=== PATIENT | male | born 1940 | race Caucasian/White ===

== ENCOUNTER 2016-06-22 13:29 | Inpatient (IN) | payer OTHER ==
[~2016-06-22] VITALS: Ht 175.3 cm; Wt 85.3 kg
[~2016-06-22 13:29] MED LIST: ASPI-482 PO; BIMA2.5D OP; BRIN10DR OP; DONE10TA34 PO; FURO-69 PO; LATA2.5D2 OU; PHEN100C PO; POTA10TA5 PO; Phenobarbital PO; SIMV10TA3 PO
[2016-06-22] MEDS ORDERED: VANCOMYCIN PER PHARMACY MC ONE (13:45)
[2016-06-22] MEDS ORDERED: FENTANYL PF 100 MCG/2 ML VIAL. IV ONE (14:00)
--- NOTE | 2016-06-22 14:03 | RAD ---
Exam performed: 3 views right ankle. History: Right ankle pain, status post fall. Date of service: 06/22/16. Comparison: None available 3 views right ankle findings: Normal alignment of the ankle mortise is preserved. There is no acute fracture or dislocation. There is diffuse soft tissue swelling around the ankle. Extensive calcification of the Achilles tendon noted. Impression: Diffuse soft tissue swelling around the right ankle without underlying acute bony abnormality. Diffuse calcification of the Achillis tendon seen.
[2016-06-22 14:11] LABS: BASO % 0 % (0-3); EOS % 1 % (0-3); HEMATOCRIT 42.8 % (39.0-53.0); HEMOGLOBIN 14.6 g/dL (13.0-17.5); LYMPH # 0.7 x10^3/uL (1.0-4.8); LYMPH % 6 % (24-48); MEAN CORPUSCULAR HEMOGLOBIN 33 pg (25-35); MEAN CORPUSCULAR HGB CONC 34 g/dL (31-37); MEAN CORPUSCULAR VOLUME 95 fL (79-100); MONO % 11 % (0-9); NEUT % 82 % (31-73); PLATELET COUNT 249 x10^3/uL (140-400); RED BLOOD COUNT 4.49 x10^6/uL (4.30-5.70); RED CELL DISTRIBUTION WIDTH 13.7 % (11.5-14.5); WHITE BLOOD COUNT 10.4 x10^3/uL (4.0-11.0)
[2016-06-22] MEDS ORDERED: VANCOMYCIN 2 GM in IV NORMAL SALINE 500ML BAG 500 ML IV ONE (14:15)
[2016-06-22 14:23] LABS: CALCIUM 9.3 mg/dL (8.5-10.1); CREATININE 0.9 mg/dL (0.7-1.3); GFR 82.3; POTASSIUM 3.5 mmol/L (3.5-5.1)
[2016-06-22] MEDS ORDERED: ONDANSETRON PF 4 MG/2 ML VIAL. IV PRN ×2 (14:30→18:00)
[2016-06-22] MEDS ORDERED: ACETAMINOPHEN 325 MG TABLET. PO PRN ×2 (14:30→18:00)
[2016-06-22] MEDS ORDERED: FENTANYL PF 100 MCG/2 ML VIAL. IV PRN (14:30)
--- NOTE | 2016-06-22 14:33 | PHYS DOC ---
Past Medical History Past Medical History: Dementia, Glaucoma, High Cholesterol, Seizure, Other Additional Past Medical Histor: edema; narrow angle glaucoma; defect to right arm and leg Past Surgical History: Other Additional Past Surgical Histo: R arm; R leg; hernia; R hip; Alcohol Use: None Drug Use: None Adult General Chief Complaint Chief Complaint: LOWER EXTREMITY SWELLING HPI HPI This is a 75-year-old male whose presenting from [facility] after having a soft tissue injury to his right ankle to 3 days ago and now having significant redness and swelling to his right ankle and anterior tibial surface with inability to bear weight on that side secondary to pain. He denies any other to medical injury with his injury to his ankle. He denies hitting his head or having loss of conscious. He denies any nausea or vomiting. He denies any chest pain or shortness breath. He rates his pain a 10/10 all localized to the right ankle area. Review of Systems Review of Systems Constitutional: Denies fever or chills [] Eyes: Denies change in visual acuity, redness, or eye pain [] HENT: Denies nasal congestion or sore throat [] Respiratory: Denies cough or shortness of breath [] Cardiovascular: No additional information not addressed in HPI [] GI: Denies abdominal pain, nausea, vomiting, bloody stools or diarrhea [] : Denies dysuria or hematuria [] Musculoskeletal: Denies back pain or joint pain [] Integument: Denies rash or skin lesions [] Neurologic: Denies headache, focal weakness or sensory changes [] Endocrine: Denies polyuria or polydipsia [] Current Medications Current Medications Current Medications Medications (Trade) Dose Ordered Sig/Gustavo Start Time Stop Time Status Last Admin Dose Admin Vancomycin HCl (Vanco Per Pharmacy) 1 each 1X ONCE 06/22/16 13:45 06/22/16 14:50 RI Allergies Allergies Allergies Coded Allergies Type Severity Reaction Last Updated Verified No Known Drug Allergies 01/24/15 No Physical Exam Physical Exam Constitutional: Well developed, well nourished, no acute distress, non-toxic appearance. [] HENT: Normocephalic, atraumatic, bilateral external ears normal, oropharynx moist, no oral exudates, nose normal. [] Eyes: PERRLA, EOMI, conjunctiva normal, no discharge. [] Neck: Normal range of motion, no tenderness, supple, no stridor. [] Cardiovascular:Heart rate regular rhythm, no murmur [] Lungs & Thorax: Bilateral breath sounds clear to auscultation [] Abdomen: Bowel sounds normal, soft, no tenderness, no masses, no pulsatile masses. [] Skin: Warm, dry, no erythema, no rash. [] Back: No tenderness, no CVA tenderness. [] Extremities: Moderate swelling, warmth, and tenderness to right ankle with signifcant erythema and pitting edema, this is c/w with cellulitis, no cyanosis , no clubbing, ROM limited in the right ankle secondary to pain, moderate edema. [] Neurologic: Alert and oriented X 3, normal motor function, normal sensory function, no focal deficits noted. [] Psychologic: Affect normal, judgement normal, mood normal. [] Current Patient Data Vital Signs Vital Signs Date Time Temp Pulse Resp B/P Pulse Ox O2 Delivery O2 Flow Rate FiO2 06/22/16 13:30 98.7 91 18 155/87 95 Room Air 98.7 Lab Values Laboratory Tests Test 06/22/16 13:45 White Blood Count 10.4x10^3/uL (4.0-11.0) Red Blood Count 4.49x10^6/uL (4.30-5.70) Hemoglobin 14.6g/dL (13.0-17.5) Hematocrit 42.8% (39.0-53.0) Mean Corpuscular Volume 95fL (79-100) Mean Corpuscular Hemoglobin 33pg (25-35) Mean Corpuscular Hemoglobin Concent 34g/dL (31-37) Red Cell Distribution Width 13.7% (11.5-14.5) Platelet Count 249x10^3/uL (140-400) Neutrophils (%) (Auto) 82% (31-73) H Lymphocytes (%) (Auto) 6% (24-48) L Monocytes (%) (Auto) 11% (0-9) H Eosinophils (%) (Auto) 1% (0-3) Basophils (%) (Auto) 0% (0-3) Neutrophils # (Auto) 8.5x10^3uL (1.8-7.7) H Lymphocytes # (Auto) 0.7x10^3/uL (1.0-4.8) L Monocytes # (Auto) 1.2x10^3/uL (0.0-1.1) H Eosinophils # (Auto) 0.1x10^3/uL (0.0-0.7) Basophils # (Auto) 0.0x10^3/uL (0.0-0.2) Sodium Level 140mmol/L (136-145) Potassium Level 3.5mmol/L (3.5-5.1) Chloride Level 103mmol/L (98-107) Carbon Dioxide Level 28mmol/L (21-32) Anion Gap 9 (6-14) Blood Urea Nitrogen 17mg/dL (8-26) Creatinine 0.9mg/dL (0.7-1.3) Estimated GFR (Cockcroft-Gault) 82.3 Glucose Level 93mg/dL (70-99) Calcium Level 9.3mg/dL (8.5-10.1) Laboratory Tests 06/22/16 13:45 Laboratory Tests 06/22/16 13:45 EKG EKG [] Radiology/Procedures Radiology/Procedures Exam performed: 3 views right ankle. History: Right ankle pain, status post fall. Date of service: 06/22/16. Comparison: None available 3 views right ankle findings: Normal alignment of the ankle mortise is preserved. There is no acute fracture or dislocation. There is diffuse soft tissue swelling around the ankle. Extensive calcification of the Achilles tendon noted. Course & Med Decision Making Course & Med Decision Making Pertinent Labs and Imaging studies reviewed. (See chart for details) 75-year-old male who's having extensive area of soft tissue swelling to his right ankle that is consistent with ongoing cellulitic process will be admitted to the hospital with IV antibiotics. Blood cultures obtained prior to antibiotics. I ordered IV vancomycin for treatment. His laboratory workup is unrevealing. 3 views of his right ankle did demonstrate diffuse soft tissue swelling but no underlying acute bony abnormality. I discussed the need for admission with the hospitalist, Dr. Hylton, who agreed to admit for IV antibiotic therapy. Upon final reassessment prior to admission the patient was developing a area of redness around the IV infiltration site. IV vancomycin was then discontinued and clindamycin therapy was ordered instead. Dr. Hylton will be updated about this. Dragon Disclaimer Dragon Disclaimer This electronic medical record was generated, in whole or in part, using a voice recognition dictation system. Departure Departure Impression: Primary Impression: Cellulitis of right leg Disposition: ADMITTED INPATIENT Admitting Physician: Antoni Hylton Condition: STABLE Referrals: MORRO BIRMINGHAM MD (PCP) FREDY MCINTOSH DO Jun 22, 2016 14:32
--- NOTE | 2016-06-22 15:53 | ACF ---
Admission Forms Criteria CELLULITIS Clinical Indications for Admission to Inpatient Care (Place 'X' for any and all applicable criteria): Admission is indicated for ANY ONE of the following(1)(2)(3)(4)(5): [ ]I. Limb-threatening infection [ ]II. High-risk comorbid condition as indicated by ANY ONE of the following: [ ]a) Uncontrolled diabetes (eg, HbA1c greater than 10% (0.1)) [ ]b) Cirrhosis [ ]c) Neutropenia [ ]d) Asplenia [ ]e) Immunosuppression [ ]f) Symptomatic heart failure [ ]III. Failure of outpatient therapy as indicated by ALL of the following: [ ]a) Progression or no improvement after adequate trial (minimum of 48 hours, with longer period for stable lower extremity infection) [ ]b) Adequate antibiotic regimen as indicated by use of ANY ONE of the following: [ ]i) First-generation cephalosporin (e.g., cephalexin) [ ]ii) Antistaphylococcal penicillin (e.g., dicloxacillin) [ ]iii) Penicillin-allergic patient regimen (clindamycin, extended-spectrum fluoroquinolone, or doxycycline) [ ]iv) Resistant organism (eg, methicillin-resistant Staphylococcus aureus) regimen (6) [ ]c) Outpatient intravenous therapy regimen is not appropriate due to ANY ONE of the following. (7)(8)(9)(10): [ ]i) It was tried and was not successful (eg, progression of infection). [ ]ii) It is not available or cannot be arranged in a clinically appropriate time frame (e.g., the next day). [ ]iii) Clinical presentation (eg, acuity of infection, rapidity of progression, confirmed or suspected bacteremia) is judged to require ALL of the following: [ ]1) Immediate initiation of intravenous therapy ( eg, cannot wait for next day) [ ]2) Intensity of patient monitoring and observation (eg, vital sign measurement, checks for infection progression) that cannot be provided at other than inpatient level of care [ ]IV. Mental status changes [ ]V. Bacteremia [ ]. Hemodynamic instability [ ]VII. Suspected necrotizing soft tissue infection (e.g., gas in tissue)(11)( 12) [ ]VIII. Orbital infection (13)(14) [ ]IX. Associated surgical procedure (e.g., abscess drainage, debridement) not amenable to outpatient, emergency department, or observation care [ ]X. Cutaneous gangrene [ ]XI. High fever (temperature greater than 39.5 degrees C (103.1 degrees F) (oral)) not responsive to outpatient, emergency department, or observation care therapy [X]XIII. Inpatient admission required rather than observation care (Also use Cellulitis: Observation Care as appropriate) because of ANY ONE of the following : [ ]a) Periorbital or perineal infection that is severe or worsening [X]b) Severe pain requiring acute inpatient management [ ]c) IV fluid to replace significant ongoing (e.g., for over 24 hours) losses (greater than 3L/m2 per day) [ ]d) Compartment syndrome monitoring (17) [ ]e) Strict or protective (eg, laminar flow) isolation [ ]f) Urgent debridement or skin grafting [ ]g) Bone or joint debridement [ ]h) Immediate inpatient surgery [ ]i) Other condition, treatment or monitoring requiring inpatient admission Extended stay beyond goal length of stay may be needed for (1)(18): [ ]a) Necrotizing soft tissue infection or fasciitis [ ]b) Gram-negative infection [ ]c) Methicillin-resistant Staphylococcal aureus (MRSA) infection [ ]d) Peripheral venous insufficiency with cellulitis [ ]e) Extensive edema [ ]f) Sepsis or continued Hemodynamic instability [ ]g) Continued high fever or mental status change [ ]h) Bacteremia [ ]i) Active serious comorbid conditions ( eg, heart failure, renal insufficiency) The original [facility] [facility] content created by [employer] has been revised. The portions of the content which have been revised are identified through the use of italic text or in bold, and [employer] has neither reviewed nor approved the modified material. All other unmodified content is copyright [employer] [employer] Please see references footnoted in the original [facility] edition 2016 Admission Criteria Met?: Yes SHABNAM HOOPER Jun 22, 2016 15:53
[2016-06-22 16:00] VITALS: BP 124/81
[2016-06-22] MEDS ORDERED: CLINDAMYCIN 600MG PREMIX 50 ML IV SCH (16:00)
[2016-06-22] MEDS ORDERED: HYDROCODONE/APAP 5/325MG TABLET. PO PRN (18:00)
--- NOTE | 2016-06-22 18:00 | PDOC1 ---
History and Physical Date of Admission Date of Admission 06/22/16 Identification/Chief Complaint Chief Complaint right ankle pain Problems: Source Source: Chart review, Patient History of Present Illness History of Present Illness HPI HPI This is a 75-year-old male whose presenting from [facility] after having a soft tissue injury to his right ankle to 3 days ago. pt said he fell when walking on the ramp, then has severe right ankle pain, still could walk, with a walker. He denies hitting his head or having loss of conscious. Then the right ankle began swelling, with redness, and pain. no fever, chills, cough, chest pain. XR neg for fx. Past Medical History Cardiovascular: HTN, Hyperlipidemia CENTRAL NERVOUS SYSTEM: Other Past Surgical History Past Surgical History: Total hip replacement Family History Family History: No Significant Social History Smoke: No ALCOHOL: none Current Problem List Problem List Problems Medical Problems: (1) Cellulitis of right leg Status: Acute Current Medications Current Medications Current Medications Medications (Trade) Dose Ordered Sig/Gustavo Start Time Stop Time Status Last Admin Dose Admin Acetaminophen 650 mg 650 mg PRN Q4HRS PRN 06/22/16 14:30 06/23/16 14:29 Clindamycin Phosphate (Cleocin 600 Mg Premix) 50 ml @ 100 mls/hr Q8HRS 06/22/16 16:00 Fentanyl Citrate (Fentanyl 2ml Vial) 50 mcg PRN Q2HR PRN 06/22/16 14:30 06/23/16 14:29 Fentanyl Citrate 50 mcg 50 mcg 1X ONCE 06/22/16 14:00 06/22/16 14:01 DC 06/22/16 14:06 50 MCG Ondansetron HCl (Zofran) 4 mg PRN Q8HRS PRN 06/22/16 14:30 06/23/16 14:29 Vancomycin HCl (Vanco Per Pharmacy) 1 each 1X ONCE 06/22/16 13:45 06/22/16 14:50 DC Vancomycin HCl/ Sodium Chloride (Iv Sodium Chloride 0.9% 500ml Bag) 500 ml @ 250 mls/hr 1X ONCE 06/22/16 14:15 06/22/16 15:23 DC 06/22/16 14:25 250 MLS/HR Allergies Allergies Allergies Coded Allergies Type Severity Reaction Last Updated Verified No Known Drug Allergies 01/24/15 No ROS Review of System CONSTITUTIONAL: No fever or chills EYES: No recent changes SKIN: No rash or itching CARDIOVASCULAR: No chest pain, syncope, palpitations, or edema RESPIRATORY: No SOB or cough GASTROINTESTINAL: No nausea, vomiting or abdominal pain NEUROLOGICAL: No headaches or weakness ENDOCRINE: No cold or heat intolerance GENITOURINARY: No urgency or frequency of urination MUSCULOSKELETAL: No back pain or joint pain LYMPHATICS: No enlarged lymph nodes PSYCHIATRIC: No anxiety or depression Physical Exam Physical Exam GEN.: No apparent distress. Alert and oriented. HEENT: Head is normocephalic, atraumatic. bad hearing NECK: Supple. LUNGS: Clear to auscultation. HEART: RRR, S1, S2 present. Peripheral pulses intact ABDOMEN: Soft, nontender. Positive bowel sounds. EXTREMITIES: Without any cyanosis. right ankle, and upper to mid leg swelling, erythematous, tenderness. NEUROLOGIC: Normal speech, normal tone PSYCHIATRIC: Normal affect, normal mood. SKIN: No ulcerations Vitals Vitals Vital Signs Date Time Temp Pulse Resp B/P Pulse Ox O2 Delivery O2 Flow Rate FiO2 06/22/16 16:00 98.3 80 18 124/81 90 Room Air 98.3 Labs Labs Laboratory Tests Test 06/22/16 13:45 White Blood Count 10.4x10^3/uL (4.0-11.0) Red Blood Count 4.49x10^6/uL (4.30-5.70) Hemoglobin 14.6g/dL (13.0-17.5) Hematocrit 42.8% (39.0-53.0) Mean Corpuscular Volume 95fL (79-100) Mean Corpuscular Hemoglobin 33pg (25-35) Mean Corpuscular Hemoglobin Concent 34g/dL (31-37) Red Cell Distribution Width 13.7% (11.5-14.5) Platelet Count 249x10^3/uL (140-400) Neutrophils (%) (Auto) 82% (31-73) Lymphocytes (%) (Auto) 6% (24-48) Monocytes (%) (Auto) 11% (0-9) Eosinophils (%) (Auto) 1% (0-3) Basophils (%) (Auto) 0% (0-3) Neutrophils # (Auto) 8.5x10^3uL (1.8-7.7) Lymphocytes # (Auto) 0.7x10^3/uL (1.0-4.8) Monocytes # (Auto) 1.2x10^3/uL (0.0-1.1) Eosinophils # (Auto) 0.1x10^3/uL (0.0-0.7) Basophils # (Auto) 0.0x10^3/uL (0.0-0.2) Sodium Level 140mmol/L (136-145) Potassium Level 3.5mmol/L (3.5-5.1) Chloride Level 103mmol/L (98-107) Carbon Dioxide Level 28mmol/L (21-32) Anion Gap 9 (6-14) Blood Urea Nitrogen 17mg/dL (8-26) Creatinine 0.9mg/dL (0.7-1.3) Estimated GFR (Cockcroft-Gault) 82.3 Glucose Level 93mg/dL (70-99) Calcium Level 9.3mg/dL (8.5-10.1) Laboratory Tests Test 06/22/16 13:45 White Blood Count 10.4x10^3/uL (4.0-11.0) Red Blood Count 4.49x10^6/uL (4.30-5.70) Hemoglobin 14.6g/dL (13.0-17.5) Hematocrit 42.8% (39.0-53.0) Mean Corpuscular Volume 95fL (79-100) Mean Corpuscular Hemoglobin 33pg (25-35) Mean Corpuscular Hemoglobin Concent 34g/dL (31-37) Red Cell Distribution Width 13.7% (11.5-14.5) Platelet Count 249x10^3/uL (140-400) Neutrophils (%) (Auto) 82% (31-73) Lymphocytes (%) (Auto) 6% (24-48) Monocytes (%) (Auto) 11% (0-9) Eosinophils (%) (Auto) 1% (0-3) Basophils (%) (Auto) 0% (0-3) Neutrophils # (Auto) 8.5x10^3uL (1.8-7.7) Lymphocytes # (Auto) 0.7x10^3/uL (1.0-4.8) Monocytes # (Auto) 1.2x10^3/uL (0.0-1.1) Eosinophils # (Auto) 0.1x10^3/uL (0.0-0.7) Basophils # (Auto) 0.0x10^3/uL (0.0-0.2) Sodium Level 140mmol/L (136-145) Potassium Level 3.5mmol/L (3.5-5.1) Chloride Level 103mmol/L (98-107) Carbon Dioxide Level 28mmol/L (21-32) Anion Gap 9 (6-14) Blood Urea Nitrogen 17mg/dL (8-26) Creatinine 0.9mg/dL (0.7-1.3) Estimated GFR (Cockcroft-Gault) 82.3 Glucose Level 93mg/dL (70-99) Calcium Level 9.3mg/dL (8.5-10.1) VTE Prophylaxis Ordered VTE Prophylaxis Devices: Yes VTE Pharmacological Prophylaxi: Yes Assessment/Plan Assessment/Plan 1. right leg/ankle cellulitis 2. right ankle sprain post fall 3/ h/oseizure 4. glaucoma 5. hld 6. mild dementia , from assisted living facility plan: 1. id consult .2 got vanco in ER, then change to clind 2/2 reaction add cefazolin 3. add diflucan 4. pain control dvt ppx ptot cont home meds pt wants to go home tmr DWIGHT WOOD MD Jun 22, 2016 17:59
[2016-06-22] MEDS ORDERED: VIT1TABL8 PO (18:45)
[2016-06-22] MEDS ORDERED: CHOL2000 PO (18:46)
[2016-06-22] MEDS: FLUCONAZOLE 100 MG TABLET. PO SCH (18:53)
[2016-06-22 19:00] VITALS: BP 123/68
[2016-06-22] MEDS ORDERED: MAGNESIUM OXIDE 400 MG TABLET PO SCH (20:00)
[2016-06-22] MEDS: CEFAZOLIN SODIUM 1 GM in IV NORMAL SALINE 50ML 50 ML IV SCH (21:41)
[2016-06-22] MEDS: SIMVASTATIN 10 MG TABLET PO SCH (21:42)
[2016-06-22] MEDS: ENOXAPARIN 40 MG/0.4 ML DISP.SYRIN. SQ SCH (21:42)
[2016-06-22] MEDS: DORZOLAMIDE 2% OPHTH SOLUTION 10ML BOTTLE. OU SCH (21:50)
[2016-06-22] MEDS: LATANOPROST 0.005% OPHTH SOLUTION 2.5ML BOTTLE. OU SCH (21:50)
[2016-06-22 23:00] VITALS: BP 126/75
[2016-06-23 03:00] VITALS: BP 111/70
[2016-06-23] MEDS: CEFAZOLIN SODIUM 1 GM in IV NORMAL SALINE 50ML 50 ML IV SCH ×3 (05:59→21:47)
[2016-06-23 06:48] LABS: BASO % 0 % (0-3); EOS % 1 % (0-3); HEMATOCRIT 37.5 % (39.0-53.0); HEMOGLOBIN 12.8 g/dL (13.0-17.5); LYMPH # 0.7 x10^3/uL (1.0-4.8); LYMPH % 9 % (24-48); MEAN CORPUSCULAR HEMOGLOBIN 32 pg (25-35); MEAN CORPUSCULAR HGB CONC 34 g/dL (31-37); MEAN CORPUSCULAR VOLUME 95 fL (79-100); MONO % 13 % (0-9); NEUT % 77 % (31-73); PLATELET COUNT 215 x10^3/uL (140-400); RED BLOOD COUNT 3.96 x10^6/uL (4.30-5.70); WHITE BLOOD COUNT 8.1 x10^3/uL (4.0-11.0)
[2016-06-23 07:00] VITALS: BP 135/71
[2016-06-23 07:04] LABS: CALCIUM 8.3 mg/dL (8.5-10.1); CREATININE 0.7 mg/dL (0.7-1.3); GFR 109.9; POTASSIUM 3.3 mmol/L (3.5-5.1)
[2016-06-23] MEDS: PHENobarbital 32.4 MG TABLET. PO SCH (08:28)
[2016-06-23] MEDS: FLUCONAZOLE 100 MG TABLET. PO SCH (08:28)
[2016-06-23] MEDS: ASPIRIN ENTERIC COATED 81 MG TABLET.DR. PO SCH (08:28)
[2016-06-23] MEDS: DONEPEZIL HCL 10 MG TABLET. PO SCH (08:28)
[2016-06-23] MEDS: PHENYTOIN SODIUM EXTENDED 100 MG CAPSULE PO SCH (08:28)
[2016-06-23] MEDS: POTASSIUM CHLORIDE 10 MEQ TABLET.ER. PO SCH (08:28)
[2016-06-23] MEDS: FUROSEMIDE 20 MG TABLET PO SCH (08:30)
[2016-06-23] MEDS ORDERED: PHENYTOIN SODIUM EXTENDED 100 MG CAPSULE PO SCH (09:00)
[2016-06-23 11:00] VITALS: BP 129/76
--- NOTE | 2016-06-23 14:30 | PDOC ---
Infectious Disease Note ROS ROS GEN: Denies fevers, chills, sweats HEENT: Denies blurred vision, sore throat CV: Denies chest pain RESP: Denies shortness of air, cough GI: Denies n/v/d NEURO: Denies confusion, dizziness MSK: Denies weakness, joint pain/swelling Vital Sign Vital Signs Vital Signs Date Time Temp Pulse Resp B/P Pulse Ox O2 Delivery O2 Flow Rate FiO2 06/23/16 11:00 97.9 80 16 129/76 95 Room Air 97.9 06/22/16 19:00 1.0 Physical Exam PHYSICAL EXAM GENERAL: NAD, Alert HEENT: PERRL, OC/OP NECK: Supple, no JVD, no LN LUNGS: Clear HEART: S1S2, no gallop, no murmur ABD: Soft, NT, no organomegaly, no rebound EXT: No edema, no cyanosis ANTITANK ASS[employer] GUNNER: Alert, oriented x 3, no focal neurologic deficit SKIN: No rash IV: ok Labs Lab Laboratory Tests Test 06/23/16 05:31 White Blood Count 8.1x10^3/uL (4.0-11.0) Red Blood Count 3.96x10^6/uL (4.30-5.70) Hemoglobin 12.8g/dL (13.0-17.5) Hematocrit 37.5% (39.0-53.0) Mean Corpuscular Volume 95fL (79-100) Mean Corpuscular Hemoglobin 32pg (25-35) Mean Corpuscular Hemoglobin Concent 34g/dL (31-37) Red Cell Distribution Width 14.0% (11.5-14.5) Platelet Count 215x10^3/uL (140-400) Neutrophils (%) (Auto) 77% (31-73) Lymphocytes (%) (Auto) 9% (24-48) Monocytes (%) (Auto) 13% (0-9) Eosinophils (%) (Auto) 1% (0-3) Basophils (%) (Auto) 0% (0-3) Neutrophils # (Auto) 6.2x10^3uL (1.8-7.7) Lymphocytes # (Auto) 0.7x10^3/uL (1.0-4.8) Monocytes # (Auto) 1.0x10^3/uL (0.0-1.1) Eosinophils # (Auto) 0.1x10^3/uL (0.0-0.7) Basophils # (Auto) 0.0x10^3/uL (0.0-0.2) Sodium Level 140mmol/L (136-145) Potassium Level 3.3mmol/L (3.5-5.1) Chloride Level 105mmol/L (98-107) Carbon Dioxide Level 24mmol/L (21-32) Anion Gap 11 (6-14) Blood Urea Nitrogen 16mg/dL (8-26) Creatinine 0.7mg/dL (0.7-1.3) Estimated GFR (Cockcroft-Gault) 109.9 Glucose Level 87mg/dL (70-99) Calcium Level 8.3mg/dL (8.5-10.1) Objective Assessment RLE cellulitis S/p mechanical fall ? Vanc allergy - arm turning red Cerebral palsy Plan Plan of Care States he is improving since his admit Cont Cefazolin/Fluconazole U/S leg as he needs compression F/u labs Thank you # [id number] FELICIA HASSAN MD Jun 23, 2016 14:30
--- NOTE | 2016-06-23 14:51 | PDOC ---
PROGRESS NOTES Chief Complaint Chief Complaint 1. right leg/ankle cellulitis 2. right ankle sprain post fall 3/ h/oseizure 4. glaucoma 5. hld 6. mild dementia , from assisted living facility History of Present Illness History of Present Illness ID following pt reports redness is better no event leg braces to walk at baseline pt hoping to go home soon ultrasound b LE to eval for Edema, will check chem 12 for alb, consider echocardiogram if not improved Vitals Vitals Vital Signs Date Time Temp Pulse Resp B/P Pulse Ox O2 Delivery O2 Flow Rate FiO2 06/23/16 11:00 97.9 80 16 129/76 95 Room Air 97.9 06/22/16 19:00 1.0 Physical Exam General: Alert, Cooperative, No acute distress, Other (moderaet oriented) Heart: Regular rate, No murmurs Lungs: Clear Abdomen: Normal bowel sounds, Soft Extremities: No clubbing Skin: No rashes, No breakdown Labs LABS Laboratory Tests Test 06/23/16 05:31 White Blood Count 8.1x10^3/uL (4.0-11.0) Red Blood Count 3.96x10^6/uL (4.30-5.70) Hemoglobin 12.8g/dL (13.0-17.5) Hematocrit 37.5% (39.0-53.0) Mean Corpuscular Volume 95fL (79-100) Mean Corpuscular Hemoglobin 32pg (25-35) Mean Corpuscular Hemoglobin Concent 34g/dL (31-37) Red Cell Distribution Width 14.0% (11.5-14.5) Platelet Count 215x10^3/uL (140-400) Neutrophils (%) (Auto) 77% (31-73) Lymphocytes (%) (Auto) 9% (24-48) Monocytes (%) (Auto) 13% (0-9) Eosinophils (%) (Auto) 1% (0-3) Basophils (%) (Auto) 0% (0-3) Neutrophils # (Auto) 6.2x10^3uL (1.8-7.7) Lymphocytes # (Auto) 0.7x10^3/uL (1.0-4.8) Monocytes # (Auto) 1.0x10^3/uL (0.0-1.1) Eosinophils # (Auto) 0.1x10^3/uL (0.0-0.7) Basophils # (Auto) 0.0x10^3/uL (0.0-0.2) Sodium Level 140mmol/L (136-145) Potassium Level 3.3mmol/L (3.5-5.1) Chloride Level 105mmol/L (98-107) Carbon Dioxide Level 24mmol/L (21-32) Anion Gap 11 (6-14) Blood Urea Nitrogen 16mg/dL (8-26) Creatinine 0.7mg/dL (0.7-1.3) Estimated GFR (Cockcroft-Gault) 109.9 Glucose Level 87mg/dL (70-99) Calcium Level 8.3mg/dL (8.5-10.1) Review of Systems Review of Systems no n/v/d Assessment and Plan Assessmemt and Plan Problems Medical Problems: (1) Cellulitis of right leg Status: Acute Problems: Comment Review of Relevant I have reviewed the following items jody (where applicable) has been applied. Labs Laboratory Tests Test 06/22/16 13:45 06/23/16 05:31 White Blood Count 10.4x10^3/uL (4.0-11.0) 8.1x10^3/uL (4.0-11.0) Red Blood Count 4.49x10^6/uL (4.30-5.70) 3.96x10^6/uL (4.30-5.70) Hemoglobin 14.6g/dL (13.0-17.5) 12.8g/dL (13.0-17.5) Hematocrit 42.8% (39.0-53.0) 37.5% (39.0-53.0) Mean Corpuscular Volume 95fL (79-100) 95fL (79-100) Mean Corpuscular Hemoglobin 33pg (25-35) 32pg (25-35) Mean Corpuscular Hemoglobin Concent 34g/dL (31-37) 34g/dL (31-37) Red Cell Distribution Width 13.7% (11.5-14.5) 14.0% (11.5-14.5) Platelet Count 249x10^3/uL (140-400) 215x10^3/uL (140-400) Neutrophils (%) (Auto) 82% (31-73) 77% (31-73) Lymphocytes (%) (Auto) 6% (24-48) 9% (24-48) Monocytes (%) (Auto) 11% (0-9) 13% (0-9) Eosinophils (%) (Auto) 1% (0-3) 1% (0-3) Basophils (%) (Auto) 0% (0-3) 0% (0-3) Neutrophils # (Auto) 8.5x10^3uL (1.8-7.7) 6.2x10^3uL (1.8-7.7) Lymphocytes # (Auto) 0.7x10^3/uL (1.0-4.8) 0.7x10^3/uL (1.0-4.8) Monocytes # (Auto) 1.2x10^3/uL (0.0-1.1) 1.0x10^3/uL (0.0-1.1) Eosinophils # (Auto) 0.1x10^3/uL (0.0-0.7) 0.1x10^3/uL (0.0-0.7) Basophils # (Auto) 0.0x10^3/uL (0.0-0.2) 0.0x10^3/uL (0.0-0.2) Sodium Level 140mmol/L (136-145) 140mmol/L (136-145) Potassium Level 3.5mmol/L (3.5-5.1) 3.3mmol/L (3.5-5.1) Chloride Level 103mmol/L (98-107) 105mmol/L (98-107) Carbon Dioxide Level 28mmol/L (21-32) 24mmol/L (21-32) Anion Gap 9 (6-14) 11 (6-14) Blood Urea Nitrogen 17mg/dL (8-26) 16mg/dL (8-26) Creatinine 0.9mg/dL (0.7-1.3) 0.7mg/dL (0.7-1.3) Estimated GFR (Cockcroft-Gault) 82.3 109.9 Glucose Level 93mg/dL (70-99) 87mg/dL (70-99) Calcium Level 9.3mg/dL (8.5-10.1) 8.3mg/dL (8.5-10.1) Laboratory Tests Test 06/23/16 05:31 White Blood Count 8.1x10^3/uL (4.0-11.0) Red Blood Count 3.96x10^6/uL (4.30-5.70) Hemoglobin 12.8g/dL (13.0-17.5) Hematocrit 37.5% (39.0-53.0) Mean Corpuscular Volume 95fL (79-100) Mean Corpuscular Hemoglobin 32pg (25-35) Mean Corpuscular Hemoglobin Concent 34g/dL (31-37) Red Cell Distribution Width 14.0% (11.5-14.5) Platelet Count 215x10^3/uL (140-400) Neutrophils (%) (Auto) 77% (31-73) Lymphocytes (%) (Auto) 9% (24-48) Monocytes (%) (Auto) 13% (0-9) Eosinophils (%) (Auto) 1% (0-3) Basophils (%) (Auto) 0% (0-3) Neutrophils # (Auto) 6.2x10^3uL (1.8-7.7) Lymphocytes # (Auto) 0.7x10^3/uL (1.0-4.8) Monocytes # (Auto) 1.0x10^3/uL (0.0-1.1) Eosinophils # (Auto) 0.1x10^3/uL (0.0-0.7) Basophils # (Auto) 0.0x10^3/uL (0.0-0.2) Sodium Level 140mmol/L (136-145) Potassium Level 3.3mmol/L (3.5-5.1) Chloride Level 105mmol/L (98-107) Carbon Dioxide Level 24mmol/L (21-32) Anion Gap 11 (6-14) Blood Urea Nitrogen 16mg/dL (8-26) Creatinine 0.7mg/dL (0.7-1.3) Estimated GFR (Cockcroft-Gault) 109.9 Glucose Level 87mg/dL (70-99) Calcium Level 8.3mg/dL (8.5-10.1) Medications Current Medications Vancomycin HCl (Vanco Per Pharmacy) 1 each 1X ONCE [facility] ; Start 06/22/16 at 13:45 ; Stop 06/22/16 at 14:50; Status DC Fentanyl Citrate 50 mcg 50 mcg 1X ONCE IV Last administered on 06/22/16 14:06 ; Start 06/22/16 at 14:00; Stop 06/22/16 at 14:01; Status DC Vancomycin HCl/ Sodium Chloride (Iv Sodium Chloride 0.9% 500ml Bag) 500 ml @ 250 mls/hr 1X ONCE IV Last administered on 06/22/16 14:25; Start 06/22/16 at 14:15; Stop 06/22/16 at 15:23; Status DC Ondansetron HCl (Zofran) 4 mg PRN Q8HRS PRN IV NAUSEA/VOMITING; Start 06/22/16 at 14:30; Stop 06/22/16 at 17:59; Status DC Fentanyl Citrate (Fentanyl 2ml Vial) 50 mcg PRN Q2HR PRN IV PAIN; Start at 14:30; Stop 06/23/16 at 14:29; Status DC Acetaminophen 650 mg 650 mg PRN Q4HRS PRN PO FEVER; Start 06/22/16 at 14:30; Stop 06/22/16 at 17:59; Status DC Clindamycin Phosphate (Cleocin 600 Mg Premix) 50 ml @ 100 mls/hr Q8HRS IV Last administered on 06/22/16 17:56; Start 06/22/16 at 16:00; Stop 06/22/16 at 18:27; Status DC Aspirin (Ecotrin) 81 mg DAILY PO Last administered on 06/23/16 08:28; Start at 09:00 Donepezil HCl (Aricept) 10 mg DAILY PO Last administered on 06/23/16 08:28; Start 06/23/16 at 09:00 Furosemide (Lasix) 20 mg DAILY PO Last administered on 06/23/16 08:30; Start 06/23/16 at 09:00 Latanoprost (Xalatan) 1 drop HS OU ; Start 06/22/16 at 21:00 Phenytoin Sodium (Dilantin) 100 mg DAILY PO Last administered on 06/23/16 08: 28; Start 06/23/16 at 09:00 Phenytoin Sodium (Dilantin) 200 mg DAILY PO ; Start 06/23/16 at 09:00; Status UNV Simvastatin (Zocor) 10 mg HS PO Last administered on 06/22/16 21:42; Start 02/28 at 21:00 Dorzolamide HCl (Trusopt) 1 drop QHS OU ; Start 06/22/16 at 21:00 Potassium Chloride (Klor-Con) 10 meq DAILYWBKFT PO Last administered on 08:28; Start 06/23/16 at 08:00 Phenobarbital 97.2 mg 97.2 mg DAILY PO Last administered on 06/23/16 08:28; Start 06/23/16 at 09:00 Cefazolin Sodium/ Sodium Chloride (Ancef/Iv Sodium Chloride 0.9% 50ml) 50 ml @ 100 mls/hr Q8HRS IV Last administered on 06/23/16 14:13; Start 06/22/16 at 22: 00 Fluconazole (Diflucan) 100 mg DAILY PO Last administered on 06/23/16 08:28; Start 06/22/16 at 18:30 Acetaminophen (Tylenol) 650 mg PRN Q6HRS PRN PO MILD PAIN / TEMP; Start at 18:00 Ondansetron HCl (Zofran) 4 mg PRN Q6HRS PRN IV NAUSEA/VOMITING; Start 06/22/16 at 18:00 Acetaminophen/ Hydrocodone Bitart (Lortab 5/325) 1 tab PRN Q4HRS PRN PO PAIN; Start 06/22/16 at 18:00 Enoxaparin Sodium (Lovenox 40mg Syringe) 40 mg Q24H SQ Last administered on 21:42; Start 06/22/16 at 21:00 Magnesium Oxide (Magnesium Oxide) 800 mg DAILY PO ; Start 06/22/16 at 20:00; Stop 06/22/16 at 20:00; Status Cancel Active Scripts Active Aricept (Donepezil Hcl) 10 Mg Tablet 10 Mg PO DAILY Xalatan (Latanoprost) 1 Drop Drops 1 Drop OU HS [Phenobarbital] 32.4 MG Tablet 97.2 Mg PO DAILY Reported Vitamin D (Cholecalciferol (Vitamin D3)) 2,000 Unit Capsule 1 Cap PO DAILY I-Simran Tablet (Vit A,C & E/Lutein/Minerals) 1 Each Tablet 1 Tab PO DAILY Simvastatin 10 Mg Tablet 10 Mg PO HS Klor-Con 10 (Potassium Chloride) 10 Meq Tablet.er 10 Meq PO DAILY Lasix (Furosemide) 20 Mg Tablet 20 Mg PO DAILY Dilantin (Phenytoin Sodium Extended) 100 Mg Capsule 100 Mg PO DAILY Aspir 81 (Aspirin) 81 Mg Tablet.dr 81 Mg PO DAILY Azopt (Brinzolamide) 10 Ml Drops.susp 10 Ml OP HS Vitals/I & O Vital Sign - Last 24 Hours 06/22/16 06/22/16 06/22/16 06/22/16 15:00 15:10 16:00 17:00 Temp 98.3 98.3 Pulse 80 88 80 Resp 22 20 18 B/P 125/74 119/77 124/81 Pulse Ox 95 93 90 O2 Delivery Room Air Room Air Room Air Room Air 06/22/16 06/22/16 06/22/16 06/22/16 19:00 20:30 21:15 23:00 Temp 98.9 99.9 98.9 99.9 Pulse 79 83 Resp 20 20 B/P 123/68 126/75 Pulse Ox 96 96 O2 Delivery Nasal Cannula Room Air Room Air Room Air O2 Flow Rate 1.0 06/23/16 06/23/16 06/23/16 03:00 07:00 11:00 Temp 98.8 98.5 97.9 98.8 98.5 97.9 Pulse 88 83 80 Resp 18 16 16 B/P 111/70 135/71 129/76 Pulse Ox 95 95 95 O2 Delivery Room Air Room Air Room Air Intake and Output 06/22/16 06/22/16 06/23/16 15:00 23:00 07:00 Intake Total 250 ml 60 ml Output Total 450 ml Balance 250 ml -390 ml GARFIELD GARCIA MD Jun 23, 2016 14:51
[2016-06-23 15:00] VITALS: BP 121/73
[2016-06-23] MEDS ORDERED: POTASSIUM CHLORIDE 20 MEQ TABLET.ER. PO ONE (15:30)
[2016-06-23 19:00] VITALS: BP 130/80
[2016-06-23] MEDS: SIMVASTATIN 10 MG TABLET PO SCH (21:47)
[2016-06-23] MEDS: ENOXAPARIN 40 MG/0.4 ML DISP.SYRIN. SQ SCH (21:47)
[2016-06-23] MEDS: DORZOLAMIDE 2% OPHTH SOLUTION 10ML BOTTLE. OU SCH (21:55)
[2016-06-23] MEDS: LATANOPROST 0.005% OPHTH SOLUTION 2.5ML BOTTLE. OU SCH (21:56)
[2016-06-23 23:17] VITALS: BP 106/67
[2016-06-24 03:19] VITALS: BP 129/78
--- NOTE | 2016-06-24 03:30 | CONS ---
DATE OF CONSULTATION: 06/23/2016 PATIENT'S ROOM: 402. REQUESTING PHYSICIAN: Dr. Hylton. REASON FOR CONSULTATION: Cellulitis. HISTORY OF PRESENT ILLNESS: The patient is a pleasant 75-year-old gentleman who is a long-term resident who stays at the [facility]. He states he fell 3 days prior to his admission when walking on a ramp. He developed some pain in his ankle on the right side, but could walk without complications using a walker. He then developed redness, tightness, and pain of his right foot. No fevers, chills, or sweats. He denies any loss of consciousness or biting of his tongue. He has no sore throat, cough or chest pain. No dysuria, frequency or urgency, but he was brought to [facility] on the . He had a white count of 10.2, but he had 82% segs, had normal creatinine. He underwent an x-ray of his ankle that showed diffuse soft tissue swelling without any bony abnormality. In the Emergency Room, he was given vancomycin, but he has some irritation and redness around the insertion site so it was discontinued. He was then placed on clindamycin. Clindamycin that was subsequently discontinued and cefazolin and fluconazole were instituted. I was contacted with regards to his admission. I have reviewed the antibiotics with the nurse and continued the cefazolin and fluconazole. Currently, the patient is sitting in a chair. He states his leg is much better than it has been over the past couple of days. He has less swelling and less redness, although redness still persists. PAST MEDICAL HISTORY: Positive for dementia, glaucoma, hypercholesterolemia, seizure disorder, edema, narrow angle glaucoma, cerebral palsy with right arm deformity. PAST SURGICAL HISTORY: Positive for right arm, right leg, hip and previous hernia surgery as well. 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 REVIEW OF SYSTEMS: Otherwise negative except for mentioned above. SOCIAL HISTORY: No tobacco. 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 He was . ALLERGIES: NOW LISTED VANCOMYCIN. FAMILY HISTORY: Noncontributory. CURRENT MEDICATIONS: Include cefazolin 1 g q. 8, enteric-coated aspirin, Aricept, Lovenox, fentanyl, fluconazole, Lasix. Other meds are available and have been reviewed in the chart including Zocor. PHYSICAL EXAMINATION: VITAL SIGNS: T-max 99.9, currently 97.9; pulse 80, respirations 16, blood pressure 129/76, satting 95% on room air. CONSTITUTIONAL: He is cooperative. He is in no acute distress. He is sitting in a chair. He is atraumatic. He is hard of hearing. HEENT: Oral cavity and pharynx was clear. NECK: Supple. No JVD. LUNGS: Clear to auscultation bilaterally. HEART: S1, S2. ABDOMEN: Soft, nontender, nondistended with the positive bowel sounds. He has got mild protuberant. EXTREMITIES: He has got some right hemiparesis. His right lower extremity has 2+ edema, left has 1+. His right foot has erythema and warmth. He has no gross tenderness. SKIN: Otherwise, warm to touch without rash. PSYCHOLOGICAL: His affect is pleasant. LABORATORY DATA: White count 8.1, hemoglobin 12.8, platelets of 215, neutrophils 77, lymphs are 9, creatinine 0.7, glucose 187. Radiology reviewed in history of present illness. IMPRESSION: 1. Right lower extremity cellulitis. 2. Status post mechanical fall. 3. QUESTIONABLE VANCOMYCIN ALLERGY WITH ARM TURNING RED. 4. Cerebral palsy. RECOMMENDATIONS: He currently states he is improving since his admission; therefore, we will continue the cefazolin and fluconazole. We will also obtain ultrasound of his lower extremities as he needs compression to control his edema. I will follow up on labs. I thank you for allowing me to see and participate in the patient's care. If you have any questions, please do not hesitate to contact me. FELICIA HASSAN MD DR: LIAT/marissa JOB#: [id number] / [id number]
[2016-06-24 04:46] LABS: BASO % 1 % (0-3); EOS % 4 % (0-3); HEMOGLOBIN 12.4 g/dL (13.0-17.5); LYMPH # 1.2 x10^3/uL (1.0-4.8); LYMPH % 18 % (24-48); MEAN CORPUSCULAR HEMOGLOBIN 32 pg (25-35); MEAN CORPUSCULAR HGB CONC 35 g/dL (31-37); MEAN CORPUSCULAR VOLUME 94 fL (79-100); MONO % 10 % (0-9); NEUT % 68 % (31-73); PLATELET COUNT 224 x10^3/uL (140-400); RED BLOOD COUNT 3.83 x10^6/uL (4.30-5.70); RED CELL DISTRIBUTION WIDTH 13.8 % (11.5-14.5); WHITE BLOOD COUNT 6.5 x10^3/uL (4.0-11.0)
[2016-06-24 05:16] LABS: ALBUMIN 2.5 g/dL (3.4-5.0); ALBUMIN/GLOBULIN RATIO 0.7 (1.0-1.7); CALCIUM 8.3 mg/dL (8.5-10.1); CREATININE 0.8 mg/dL (0.7-1.3); GFR 94.2; POTASSIUM 3.5 mmol/L (3.5-5.1); TOTAL BILIRUBIN 0.4 mg/dL (0.2-1.0); TOTAL PROTEIN 6.2 g/dL (6.4-8.2)
[2016-06-24] MEDS: CEFAZOLIN SODIUM 1 GM in IV NORMAL SALINE 50ML 50 ML IV SCH (05:59)
[2016-06-24 07:00] VITALS: BP 136/74
--- NOTE | 2016-06-24 08:23 | RAD ---
Bilateral lower extremity venous ultrasound, 06/23/2016: History: Right lower leg cellulitis, left leg edema Duplex evaluation of the deep veins in the lower extremities was performed including grayscale, color-flow and spectral Doppler analysis. The femoral and popliteal veins demonstrate normal compressibility and normal responses to distal augmentation maneuvers. Color imaging of those vessels shows no evidence of intraluminal clot. The visualized deep veins in both calves are patent. There is extensive subcutaneous edema in the right lower leg and ankle. IMPRESSION: There is no sonographic evidence of deep vein thrombosis in either lower extremity.
[2016-06-24] MEDS ORDERED: INFLUENZA VAX SCREEN BY RX. MC PRN (09:00)
--- NOTE | 2016-06-24 09:36 | PDOC ---
Infectious Disease Note Subjective Subjective Doing ok. Wants more ice-cream ROS ROS GEN: Denies fevers, chills, sweats HEENT: Denies blurred vision, sore throat CV: Denies chest pain RESP: Denies shortness of air, cough GI: Denies n/v/d NEURO: Denies confusion, dizziness MSK: Denies weakness, joint pain/swelling Vital Sign Vital Signs Vital Signs Date Time Temp Pulse Resp B/P Pulse Ox O2 Delivery O2 Flow Rate FiO2 06/24/16 07:00 97.6 70 16 136/74 96 Room Air 97.6 Physical Exam PHYSICAL EXAM GENERAL: NAD, Alert HEENT: PERRL, OC/OP -clear NECK: Supple, no JVD, no LN LUNGS: Clear HEART: S1S2, no gallop, no murmur ABD: Soft, NT, no organomegaly, no rebound EXT: Right foot with 2 plus edema, Onychomycosis. 1 plus Left foot. + Dependent [employer]: Alert, oriented x 3, no focal neurologic deficit SKIN: No rash IV: ok Labs Lab Laboratory Tests Test 06/24/16 03:48 White Blood Count 6.5x10^3/uL (4.0-11.0) Red Blood Count 3.83x10^6/uL (4.30-5.70) Hemoglobin 12.4g/dL (13.0-17.5) Hematocrit 36.0% (39.0-53.0) Mean Corpuscular Volume 94fL (79-100) Mean Corpuscular Hemoglobin 32pg (25-35) Mean Corpuscular Hemoglobin Concent 35g/dL (31-37) Red Cell Distribution Width 13.8% (11.5-14.5) Platelet Count 224x10^3/uL (140-400) Neutrophils (%) (Auto) 68% (31-73) Lymphocytes (%) (Auto) 18% (24-48) Monocytes (%) (Auto) 10% (0-9) Eosinophils (%) (Auto) 4% (0-3) Basophils (%) (Auto) 1% (0-3) Neutrophils # (Auto) 4.4x10^3uL (1.8-7.7) Lymphocytes # (Auto) 1.2x10^3/uL (1.0-4.8) Monocytes # (Auto) 0.7x10^3/uL (0.0-1.1) Eosinophils # (Auto) 0.3x10^3/uL (0.0-0.7) Basophils # (Auto) 0.0x10^3/uL (0.0-0.2) Sodium Level 139mmol/L (136-145) Potassium Level 3.5mmol/L (3.5-5.1) Chloride Level 106mmol/L (98-107) Carbon Dioxide Level 25mmol/L (21-32) Anion Gap 8 (6-14) Blood Urea Nitrogen 15mg/dL (8-26) Creatinine 0.8mg/dL (0.7-1.3) Estimated GFR (Cockcroft-Gault) 94.2 BUN/Creatinine Ratio 19 (6-20) Glucose Level 82mg/dL (70-99) Calcium Level 8.3mg/dL (8.5-10.1) Total Bilirubin 0.4mg/dL (0.2-1.0) Aspartate Amino Transf (AST/SGOT) 26U/L (15-37) Alanine Aminotransferase (ALT/SGPT) 18U/L (16-63) Alkaline Phosphatase 62U/L (46-116) Total Protein 6.2g/dL (6.4-8.2) Albumin 2.5g/dL (3.4-5.0) Albumin/Globulin Ratio 0.7 (1.0-1.7) Objective Assessment RLE cellulitis S/p mechanical fall ? Vanc allergy - arm turning red Cerebral palsy Plan Plan of Care Discont Cefazolin - begin Keflex for 7 days Cont Fluconazole daily for 3 more days then weekly for 4 weeks Tubigrips to [facility] to discharge FELICIA HASSAN MD Jun 24, 2016 09:36
[2016-06-24] MEDS: POTASSIUM CHLORIDE 10 MEQ TABLET.ER. PO SCH (09:48)
[2016-06-24] MEDS: FUROSEMIDE 20 MG TABLET PO SCH (09:48)
[2016-06-24] MEDS: ASPIRIN ENTERIC COATED 81 MG TABLET.DR. PO SCH (09:48)
[2016-06-24] MEDS: FLUCONAZOLE 100 MG TABLET. PO SCH (09:48)
[2016-06-24] MEDS: DONEPEZIL HCL 10 MG TABLET. PO SCH (09:48)
[2016-06-24] MEDS: PHENobarbital 32.4 MG TABLET. PO SCH (09:48)
[2016-06-24] MEDS: PHENYTOIN SODIUM EXTENDED 100 MG CAPSULE PO SCH (09:48)
[2016-06-24 11:00] VITALS: BP 143/74
[2016-06-24] MEDS: CEPHALEXIN 250 MG CAPSULE PO SCH ×3 (12:55→21:01)
[2016-06-24] MEDS ORDERED: FLU VACC QUAD 2016-17 (36MOS+)/PF 0.5 ML SYRINGE. VAX IM ONE (13:00)
[2016-06-24 15:00] VITALS: BP 126/72
--- NOTE | 2016-06-24 15:26 | PDOC ---
PROGRESS NOTES Chief Complaint Chief Complaint R ankle pain s/p fall ASSESSMENT AND PLAN: 1. R ankle sprain post fall. rx sympromatically. can put wt on ankle. awaiting OT/PT eval 2. R leg/ankle cellulitis: improving. now on keflex 3. Hx seizure: cont home regimen 4. glaucoma: cont eye drops 5. HLD: on statin 6. mild dementia 7. Protein malnutrition: dietary consult, supplements 8. Dispo: anticipate D/C to NH/ ass.d living in AM Vitals Vitals Vital Signs Date Time Temp Pulse Resp B/P Pulse Ox O2 Delivery O2 Flow Rate FiO2 06/24/16 11:00 98.2 73 16 143/74 96 Room Air 98.2 Physical Exam General: Alert, Cooperative, No acute distress Heart: Regular rate, No murmurs Lungs: Clear Abdomen: Normal bowel sounds, Soft Extremities: No clubbing, Other (R foot deep red and edematous 3+) Skin: No rashes, No breakdown Labs LABS Laboratory Tests Test 06/24/16 03:48 White Blood Count 6.5x10^3/uL (4.0-11.0) Red Blood Count 3.83x10^6/uL (4.30-5.70) Hemoglobin 12.4g/dL (13.0-17.5) Hematocrit 36.0% (39.0-53.0) Mean Corpuscular Volume 94fL (79-100) Mean Corpuscular Hemoglobin 32pg (25-35) Mean Corpuscular Hemoglobin Concent 35g/dL (31-37) Red Cell Distribution Width 13.8% (11.5-14.5) Platelet Count 224x10^3/uL (140-400) Neutrophils (%) (Auto) 68% (31-73) Lymphocytes (%) (Auto) 18% (24-48) Monocytes (%) (Auto) 10% (0-9) Eosinophils (%) (Auto) 4% (0-3) Basophils (%) (Auto) 1% (0-3) Neutrophils # (Auto) 4.4x10^3uL (1.8-7.7) Lymphocytes # (Auto) 1.2x10^3/uL (1.0-4.8) Monocytes # (Auto) 0.7x10^3/uL (0.0-1.1) Eosinophils # (Auto) 0.3x10^3/uL (0.0-0.7) Basophils # (Auto) 0.0x10^3/uL (0.0-0.2) Sodium Level 139mmol/L (136-145) Potassium Level 3.5mmol/L (3.5-5.1) Chloride Level 106mmol/L (98-107) Carbon Dioxide Level 25mmol/L (21-32) Anion Gap 8 (6-14) Blood Urea Nitrogen 15mg/dL (8-26) Creatinine 0.8mg/dL (0.7-1.3) Estimated GFR (Cockcroft-Gault) 94.2 BUN/Creatinine Ratio 19 (6-20) Glucose Level 82mg/dL (70-99) Calcium Level 8.3mg/dL (8.5-10.1) Total Bilirubin 0.4mg/dL (0.2-1.0) Aspartate Amino Transf (AST/SGOT) 26U/L (15-37) Alanine Aminotransferase (ALT/SGPT) 18U/L (16-63) Alkaline Phosphatase 62U/L (46-116) Total Protein 6.2g/dL (6.4-8.2) Albumin 2.5g/dL (3.4-5.0) Albumin/Globulin Ratio 0.7 (1.0-1.7) Review of Systems Review of Systems feels ok. eager to go home GAGANDEEP PALENCIA MD Jun 24, 2016 15:26
--- NOTE | 2016-06-24 17:05 | CARD ---
APPROVED REPORT EXAM: Two-dimensional and M-mode echocardiogram with Doppler and color Doppler. Other Information Quality : Good INDICATION Peripheral Edema 2D DIMENSIONS RVDd3.0 (2.9-3.5cm)Left Atrium(2D)2.3 (1.6-4.0cm) IVSd1.1 (0.7-1.1cm)Aortic Root(2D)3.3 (2.0-3.7cm) LVDd4.2 (3.9-5.9cm)LVOT Diameter2.2 (1.8-2.4cm) PWd1.1 (0.7-1.1cm)LVDs3.1 (2.5-4.0cm) FS (%) 26.6 %SV41.9 ml LVEF(%)52.3 (>50%) Aortic Valve AoV Peak Serge.166.2cm/sAoV VTI28.1cm AO Peak GR.11.1mmHgLVOT Peak Serge.134.1cm/s LVOT VTI 28.75cmAO Mean GR.6mmHg NILO (VMAX)3.37xs5QSO (VTI)3.98cm2 AI P 1/2 Eeef353wr Mitral Valve MV E Irxqylfd71.6cm/sMV DECEL [id number] MV A Qyehvwwx80.3cm/sMV JBH82dl E/A Ratio0.8MVA (PHT)2.33cm2 TDI E/Medial E'13.4 Tricuspid Valve TR P. Ipvarbiw407yp/sRAP FQHPIZVS2igDv TR Peak Gr.09leZvOHXB82psXj Pulmonary Vein S1 Csuzhjul50.4cm/sD2 Kxjkjich70.0cm/s PVa [id number] LEFT VENTRICLE The left ventricle is normal size. There is normal left ventricular wall thickness. The left ventricu lar systolic function is normal and the ejection fraction is within normal range. The Ejection Fracti on is 50-55%. There is normal LV segmental wall motion. Tissue Doppler imaging reveals mild left vent ricular diastolic dysfunction. RIGHT VENTRICLE The right ventricle is normal size. The right ventricular systolic function is normal. ATRIA The left atrium size is normal. The right atrium size is normal. The interatrial septum is intact wit h no evidence for an atrial septal defect or patent foramen ovale as noted on 2-D or Doppler imaging. AORTIC VALVE The aortic valve is calcified but opens well. Doppler and Color Flow revealed mild aortic regurgitati on. There is no significant aortic valvular stenosis. MITRAL VALVE The mitral valve is calcified but opens well. There is no evidence of mitral valve prolapse. There is no mitral valve stenosis. Doppler and Color-flow revealed trace mitral regurgitation. TRICUSPID VALVE The tricuspid valve is normal in structure and function. Doppler and Color Flow revealed trace tricus pid regurgitation. The PA pressure was estimated at 26 mmHg. There is no tricuspid valve stenosis. PULMONIC VALVE Doppler and Color Flow revealed mild pulmonic valvular regurgitation. There is no pulmonic valvular s tenosis. GREAT VESSELS The aortic root is normal in size. The ascending aorta is mildly dilated at 3.6 cm. The IVC is normal in size and collapses >50% with inspiration. PERICARDIAL EFFUSION There is no evidence of significant pericardial effusion. Critical Notification Critical Value: No <Conclusion> The left ventricular systolic function is normal and the ejection fraction is within normal range. Th e Ejection Fraction is 50-55%. There is normal LV segmental wall motion. Doppler and Color Flow revealed mild aortic regurgitation. The ascending aorta is mildly dilated at 3.6 cm. Tissue Doppler imaging reveals mild left ventricular diastolic dysfunction.
[2016-06-24 19:00] VITALS: BP 148/81
[2016-06-24] MEDS: SIMVASTATIN 10 MG TABLET PO SCH (21:01)
[2016-06-24] MEDS: ENOXAPARIN 40 MG/0.4 ML DISP.SYRIN. SQ SCH (21:01)
[2016-06-24] MEDS: DORZOLAMIDE 2% OPHTH SOLUTION 10ML BOTTLE. OU SCH (21:08)
[2016-06-24] MEDS: LATANOPROST 0.005% OPHTH SOLUTION 2.5ML BOTTLE. OU SCH (21:08)
[2016-06-24 23:00] VITALS: BP 136/79
[2016-06-25 03:00] VITALS: BP 141/76
[2016-06-25 07:00] VITALS: BP 144/87
[2016-06-25] MEDS: ASPIRIN ENTERIC COATED 81 MG TABLET.DR. PO SCH (08:45)
[2016-06-25] MEDS: PHENYTOIN SODIUM EXTENDED 100 MG CAPSULE PO SCH (08:45)
[2016-06-25] MEDS: DONEPEZIL HCL 10 MG TABLET. PO SCH (08:45)
[2016-06-25] MEDS: POTASSIUM CHLORIDE 10 MEQ TABLET.ER. PO SCH (08:45)
[2016-06-25] MEDS: FUROSEMIDE 20 MG TABLET PO SCH (08:45)
[2016-06-25] MEDS: FLUCONAZOLE 100 MG TABLET. PO SCH (08:45)
[2016-06-25] MEDS: PHENobarbital 32.4 MG TABLET. PO SCH (08:45)
[2016-06-25] MEDS: CEPHALEXIN 250 MG CAPSULE PO SCH ×2 (08:45→12:02)
--- NOTE | 2016-06-25 10:36 | DISCH ---
DISCHARGE INSTRUCTIONS Condition on Discharge Condition on Discharge: Stable Activity After Discharge Activity Instructions for Disc: Resume previous activity Diet after Discharge Diet after Discharge: Cardiac Contacting the DR. after DC Call your doctor for: Concerns you may have Follow-Up Follow up with: PCP in 1 week GAGANDEEP PALENCIA MD Jun 25, 2016 10:36
[2016-06-25] MEDS ORDERED: ACET325T16 PO (10:44)
[2016-06-25] MEDS ORDERED: FLUC100T7 PO (10:44)
[2016-06-25] MEDS ORDERED: CEPH250C PO (10:44)
[2016-06-25 11:00] VITALS: BP 138/85
--- NOTE | 2016-06-27 00:59 | DS ---
DATE OF DISCHARGE: 06/25/2016 CHIEF COMPLAINT: Right ankle pain status post fall. HOSPITAL COURSE: The patient is a 75-year-old gentleman who sustained an ankle sprain with a fall. He had presented to the Emergency Room with inability to put weight on the ankle. Also had noted redness, which was diagnosed as a right leg/ankle cellulitis and was started on antibiotics. He actually improved on both pain as well as cellulitis issues during his hospitalization. He was switched to Keflex on an outpatient basis. OT, PT had seen the patient and he once again was able to weight bear with a walker. He was therefore deemed appropriate for discharge to home with home services including physical therapy. DISCHARGE EXAMINATION: VITAL SIGNS: Blood pressure of 138/85, heart rate of 73, respiratory rate of 16. No fevers. GENERAL: This is a 75-year-old overweight gentleman, alert and oriented, no acute distress. LUNGS: Clear. HEART: Regular rate and rhythm. ABDOMEN: Has positive bowel sounds, soft, nontender. EXTREMITIES: The right foot is in boot, showing a mild erythema in the lower distal extremity and dorsum of foot. DISCHARGE DISPOSITION: To home with services. DISCHARGE CONDITION: Improved. DISCHARGE DIAGNOSES: Right ankle sprain, right lower extremity cellulitis. DISCHARGE MEDICATIONS: Please refer to MAR. DISCHARGE INSTRUCTIONS: The patient will follow up with PCP in 1-2 weeks. Greater than 30 minutes were spent in arranging discharge. GAGANDEEP PALENCIA MD DR: DALILA/nts JOB#: [id number] / [id number] JAMI Harris
== END 2016-06-25 14:10 | disposition home health service (06) | DRG 603 ==
LOC: ER 13:29 → 4 NORTH 13:59
PROVIDERS: ADMIT Internal Medicine; ATTEND Internal Medicine
DX: L03.115 Cellulitis of right lower limb (principal); E44.0 Moderate protein-calorie malnutrition; S93.401A Sprain of unspecified ligament of right ankle, initial encounter; E66.3 Overweight; E78.00 Pure hypercholesterolemia, unspecified; E78.5 Hyperlipidemia, unspecified; F03.90 Unspecified dementia, unspecified severity, without behavioral disturbance, psychotic disturbance, mood disturbance, and anxiety; G40.909 Epilepsy, unspecified, not intractable, without status epilepticus; G80.9 Cerebral palsy, unspecified; Z96.641 Presence of right artificial hip joint; H40.9 Unspecified glaucoma; I10 Essential (primary) hypertension; W18.39XA Other fall on same level, initial encounter; Y93.01 Activity, walking, marching and hiking; Y92.89 Other specified places as the place of occurrence of the external cause; Y99.8 Other external cause status; Z68.27 Body mass index [BMI] 27.0-27.9, adult; Z88.1 Allergy status to other antibiotic agents; Z79.899 Other long term (current) drug therapy
CPT/HCPCS: 36415; 73610; 80048; 80053; 85027; 87040; 90686; 93306; 93970; 96365; 96375; J0690; J1650; J3010; J3370; J3490; J7040; 97116; 97530; 99285-25

== ENCOUNTER 2018-12-26 19:51 | Emergency (ER) | payer MEDICARE, OTHER ==
[~2018-12-26] VITALS: Ht 182.9 cm; Wt 79.4 kg
[~2018-12-26 19:51] MED LIST changes: +ACET325T16 PO; +CEPH250C PO; +CHOL2000 PO; +DIPH1TAB PO; -DONE10TA34 PO; +DONE10TA61 PO; +FLUC100T7 PO; +POTA10TA12 PO; -POTA10TA5 PO; +VIT1TABL8 PO
--- NOTE | 2018-12-26 20:10 | PHYS DOC ---
Past Medical History Past Medical History: Dementia, Glaucoma, High Cholesterol, Seizure, Other Additional Past Medical Histor: edema; narrow angle glaucoma; defect to right arm and leg Past Surgical History: Other Additional Past Surgical Histo: R arm; R leg; hernia; R hip; Alcohol Use: None Drug Use: None Adult General Chief Complaint Chief Complaint: MECHANICAL FALL HPI HPI 78-year-old male presents to the emergency department with complaints of fall. She is a [facility] resident apparently around 5 PM he fell out of bed. No lo ss of consciousness, no neck pain, no chest pain, no shortness of breath, no nausea or vomiting. Patient primarily describes right hip pain. Patient is on no blood thinning medications. He is resting comfortably at this time. At his baseline. Review of Systems Review of Systems Constitutional: Denies fever or chills [] Respiratory: Denies cough or shortness of breath [] Cardiovascular: No additional information not addressed in HPI [] GI: Denies abdominal pain, nausea, vomiting, bloody stools or diarrhea [] Musculoskeletal: Right hip pain Integument: Denies rash or skin lesions [] Neurologic: Denies headache, All other systems were reviewed and found to be within normal limits, except as documented in this note. Allergies Allergies Allergies Coded Allergies Type Severity Reaction Last Updated Verified vancomycin Allergy Intermediate REDNESS AT SITE OF INFUSION 06/22/16 Yes I S O L A T I O N *CONTACT* Allergy Unknown 09/09/17 Yes Physical Exam Physical Exam Constitutional: No acute distress, nontoxic HENT: Normocephalic, atraumatic, bilateral external ears normal, oropharynx moist, no oral exudates, nose normal. [] Eyes: PERRLA, EOMI, conjunctiva normal, no discharge. [] Neck: Normal range of motion, no tenderness, supple, no stridor. [] Cardiovascular:Heart rate regular rhythm, no murmur [] Lungs & Thorax: Bilateral breath sounds clear to auscultation [] Abdomen: Bowel sounds normal, soft, no tenderness, no masses Skin: Warm, dry, no erythema, no rash. [] Back: No tenderness, no CVA tenderness. [] Extremities: No obvious right hip deformity, scar is pressure from previous surgical intervention, no pain on palpation Neurologic: Alert, follows commands, moves all extremities. Current Patient Data Vital Signs Vital Signs Date Time Temp Pulse Resp B/P (MAP) Pulse Ox O2 Delivery O2 Flow Rate FiO2 12/26/18 20:02 98.7 83 16 132/85 (101) 95 Room Air 98.7 EKG EKG [] Radiology/Procedures Radiology/Procedures [facility] [address] [place] [address] IMAGING REPORT Signed PATIENT: TOBI ALVES ACCOUNT: [id number] : 1940 LOCATION: ER AGE: 78 SEX: M EXAM STATUS: REG ER ORD. PHYSICIAN: YUSUF MURPHY MD REASON: fall from bed, no obvious deformity PROCEDURE: HIP RIGHT 2V WITH PELVIS Examination: HIP RIGHT 2V WITH PELVIS History: Fall, pain Comparison/Correlation: None Findings: Frontal view of the pelvis, frontal view right hip, and frog-leg lateral view of the right hip were obtained. Portable technique utilized. Right hip joint prosthesis is present. No acute fracture or bony destruction. Osteopenia noted. Impression: No acute fracture. Osteopenia. Electronically signed by: Delon Trujillo MD (12/26/2018 8:41 PM) [facility] DICTATED and SIGNED BY: DELON TRUJILLO MD DATE: 12/26/182040 [] Course & Med Decision Making Course & Med Decision Making Pertinent Labs and Imaging studies reviewed. (See chart for details) []78-year-old male presents to the emergency department with complaints of fall. She is a [facility] resident apparently around 5 PM he fell out of bed. No loss of consciousness, no neck pain, no chest pain, no shortness of breath, no nausea or vomiting. Patient primarily describes right hip pain. Patient is on no blood thinning medications. He is resting comfortably at this time. At his baseline. Dragon Disclaimer Dragon Disclaimer This electronic medical record was generated, in whole or in part, using a voice recognition dictation system. Departure Departure Impression: Primary Impression: Fall Additional Impression: Right hip pain Disposition: 03 TRANSFER SNF Condition: STABLE Referrals: JAMI BLACKMAN (PCP) Patient Instructions: Hip Pain Additional Instructions: Recommend tylenol/motrin as needed for pain Xray reviewed without evidence of acute fracture or dislocation Return to the ER with altered mental status, fever Problem Qualifiers Primary Impression: Fall Encounter type: initial encounter Qualified Codes: W19.XXXA - Unspecified fall, initial encounter YUSUF MURPHY MD Dec 26, 2018 20:10
--- NOTE | 2018-12-26 20:44 | RAD ---
Examination: HIP RIGHT 2V WITH PELVIS History: Fall, pain Comparison/Correlation: None Findings: Frontal view of the pelvis, frontal view right hip, and frog-leg lateral view of the right hip were obtained. Portable technique utilized. Right hip joint prosthesis is present. No acute fracture or bony destruction. Osteopenia noted. Impression: No acute fracture. Osteopenia. Electronically signed by: Delon Campoverde MD (12/26/2018 8:41 PM) [facility]
[2018-12-26 21:44] VITALS: BP 135/79
== END 2018-12-26 21:45 | disposition home or self-care (01) ==
LOC: ER 19:51
DX: M25.551 Pain in right hip (principal); E78.00 Pure hypercholesterolemia, unspecified; Z88.1 Allergy status to other antibiotic agents; Z91.041 Radiographic dye allergy status; W06.XXXA Fall from bed, initial encounter; Y93.89 Activity, other specified; Y92.129 Unspecified place in nursing home as the place of occurrence of the external cause; Y99.8 Other external cause status
CPT/HCPCS: 73502; 99284; 99285

== ENCOUNTER 2019-01-22 10:29 | Inpatient (IN) | payer MEDICARE, OTHER ==
[~2019-01-22] VITALS: Ht 172.7 cm; Wt 81.6 kg
[~2019-01-22 10:29] MED LIST changes: +SIMV10TA15 PO; -SIMV10TA3 PO
--- NOTE | 2019-01-22 10:40 | PHYS DOC ---
Past Medical History Past Medical History: CHF, Dementia Additional Past Medical Histor: cerebral palsy, hyperlipidemia, epilepsy, generalized muscle weakness Past Surgical History: Other Additional Past Surgical Histo: R arm; R leg; hernia; R hip; Alcohol Use: None Drug Use: None Adult General HPI HPI 78-year-old male presents to the emergency Department with complaints of altered mental status, falling to the left. Patient is a resident of nursing facility unknown last normal. 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 He as well has underlying history of epilepsy. Patient denies any acute complaints on examination. He is unable to provide history. Review of Systems Review of Systems Respiratory: Denies cough or shortness of breath [] Cardiovascular: No additional information not addressed in HPI [] GI: Denies abdominal pain, nausea, vomiting, bloody stools or diarrhea [] Musculoskeletal: Denies back pain or joint pain [] All other systems were reviewed and found to be within normal limits, except as documented in this note. Current Medications Current Medications Current Medications Medications (Trade) Dose Ordered Sig/Gustavo Start Time Stop Time Status Last Admin Dose Admin Ceftriaxone Sodium (Rocephin) 1 gm 1X ONCE 01/22/19 13:15 01/22/19 13:16 DC Ondansetron HCl (Zofran) 4 mg PRN Q8HRS PRN 01/22/19 13:00 01/23/19 12:59 Allergies Allergies Allergies Coded Allergies Type Severity Reaction Last Updated Verified vancomycin Allergy Intermediate REDNESS AT SITE OF INFUSION 06/22/16 Yes I S O L A T I O N *CONTACT* Allergy Unknown 09/09/17 Yes Physical Exam Physical Exam Constitutional: no acute distress, non-toxic appearance. [] HENT: Normocephalic, atraumatic, bilateral external ears normal, oropharynx moist, no oral exudates, nose normal. [] Eyes: PERRLA, EOMI, conjunctiva normal, no discharge. [] Cardiovascular:Heart rate regular rhythm, no murmur [] Lungs & Thorax: Bilateral breath sounds clear to auscultation [] Abdomen: Bowel sounds normal, soft, no tenderness, no masses, no pulsatile masses. [] Skin: Warm, dry, no erythema, no rash. [] Extremities: No tenderness, + edema Neurologic: Alert to person, follows some commands Psychologic: Affect normal, judgement normal, mood normal. [] Current Patient Data Vital Signs Vital Signs Date Time Temp Pulse Resp B/P (MAP) Pulse Ox O2 Delivery O2 Flow Rate FiO2 01/22/19 10:31 98.2 88 18 132/75 (94) 98 Room Air 98.2 Lab Values Laboratory Tests Test 01/22/19 10:50 01/22/19 12:04 01/22/19 12:39 White Blood Count 10.4 x10^3/uL (4.0-11.0) Red Blood Count 4.02 x10^6/uL (4.30-5.70) L Hemoglobin 13.7 g/dL (13.0-17.5) Hematocrit 40.0 % (39.0-53.0) Mean Corpuscular Volume 100 fL (79-100) Mean Corpuscular Hemoglobin 34 pg (25-35) Mean Corpuscular Hemoglobin Concent 34 g/dL (31-37) Red Cell Distribution Width 14.2 % (11.5-14.5) Platelet Count 241 x10^3/uL (140-400) Neutrophils (%) (Auto) 82 % (31-73) H Lymphocytes (%) (Auto) 8 % (24-48) L Monocytes (%) (Auto) 9 % (0-9) Eosinophils (%) (Auto) 1 % (0-3) Basophils (%) (Auto) 0 % (0-3) Neutrophils # (Auto) 8.5 x10^3/uL (1.8-7.7) H Lymphocytes # (Auto) 0.9 x10^3/uL (1.0-4.8) L Monocytes # (Auto) 0.9 x10^3/uL (0.0-1.1) Eosinophils # (Auto) 0.1 x10^3/uL (0.0-0.7) Basophils # (Auto) 0.0 x10^3/uL (0.0-0.2) Sodium Level 141 mmol/L (136-145) Potassium Level 3.8 mmol/L (3.5-5.1) Chloride Level 105 mmol/L (98-107) Carbon Dioxide Level 28 mmol/L (21-32) Anion Gap 8 (6-14) Blood Urea Nitrogen 33 mg/dL (8-26) H Creatinine 0.8 mg/dL (0.7-1.3) Estimated GFR (Cockcroft-Gault) 93.5 BUN/Creatinine Ratio 41 (6-20) H Glucose Level 87 mg/dL (70-99) Lactic Acid Level 1.2 mmol/L (0.4-2.0) Calcium Level 8.9 mg/dL (8.5-10.1) Magnesium Level 2.0 mg/dL (1.8-2.4) Total Bilirubin 0.4 mg/dL (0.2-1.0) Aspartate Amino Transferase (AST) 19 U/L (15-37) Alanine Aminotransferase (ALT) 15 U/L (16-63) L Alkaline Phosphatase 74 U/L (46-116) Ammonia < 10 mcmol/L (11-34) L Total Protein 7.1 g/dL (6.4-8.2) Albumin 3.2 g/dL (3.4-5.0) L Albumin/Globulin Ratio 0.8 (1.0-1.7) L O2 Saturation 96 % (92-99) Arterial Blood pH 7.46 (7.35-7.45) H Arterial Blood pCO2 at Patient Temp 31 mmHg (35-46) L Arterial Blood pO2 at Patient Temp 80 mmHg (65-108) Arterial Blood HCO3 22 mmol/L (21-28) Arterial Blood Base Excess -1 mmol/L (-3-3) FiO2 21 Urine Collection Type Unknown Urine Color Yellow Urine Clarity Clear Urine pH 6.5 Urine Specific [place] 1.020 Urine Protein Negative mg/dL (NEG-TRACE) Urine Glucose (UA) Negative mg/dL (NEG) Urine Ketones (Stick) Negative mg/dL (NEG) Urine Blood Negative (NEG) Urine Nitrite Negative (NEG) Urine Bilirubin Negative (NEG) Urine Urobilinogen Dipstick 2.0 mg/dL (0.2 mg/dL) Urine Leukocyte Esterase Moderate (NEG) Urine RBC 0 /HPF (0-2) Urine WBC >40 /HPF (0-4) Urine Squamous Epithelial Cells Few /LPF Urine Transitional Epithelial Cells Few /LPF Urine Bacteria Many /HPF (0-FEW) Urine Hyaline Casts Moderate /HPF Urine Mucus Mod /LPF Laboratory Tests 01/22/19 10:50 Laboratory Tests 01/22/19 10:50 EKG EKG EKG reviewed, normal sinus rhythm, heart rate 81, no evidence of acute ST elevation OK.[] Interpretation Time: Interpretation time 1105 Radiology/Procedures Radiology/Procedures [address] [address] IMAGING REPORT Signed PATIENT: TOBI ALVES ACCOUNT: [id number] : 1940 LOCATION: ER AGE: 78 SEX: M EXAM STATUS: REG ER ORD. PHYSICIAN: YUSUF MURPHY MD REASON: altered mental status PROCEDURE: PORTABLE CHEST 1V Single AP view of the chest. Comparison: 09/05/2017. Indication: Altered mental status Findings: The heart is enlarged but stable. There is no pneumothorax or effusion. No air space or interstitial disease. Impression: 1. No acute cardiopulmonary process. Electronically signed by: He High MD (01/22/2019 11:05 AM) [facility] DICTATED and SIGNED BY: HE HIGH MD DATE: 01/22/19 1105 [] [id number] [place] [address] IMAGING REPORT Signed PATIENT: TOBI ALVES ACCOUNT: [id number] : 1940 LOCATION: ER AGE: 78 SEX: M EXAM STATUS: REG ER ORD. PHYSICIAN: YUSUF MURPHY MD REASON: altered mental status PROCEDURE: CT HEAD WO CONTRAST CT HEAD WO CONTRAST Indication: Altered mental status. Exposure: One or more of the following individualized dose reduction techniques were utilized for this examination: 1. Automated exposure control 2. Adjustment of the mA and/or kV according to patient size 3. Use of iterative reconstruction technique. Technique: Standard imaging without intravenous contrast. Comparison: Limited images from CT head of 08/26/2012, report not available. FINDINGS: No acute intracranial hemorrhage, mass effect, midline shift or abnormal extra-axial fluid collection. Generalized atrophy. Enlargement of the ventricles, appears greater than on prior study although only limited images are available from the previous exam. 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 Low-density in the white matter bilaterally, a nonspecific finding, but which is commonly due to chronic small vessel ischemic disease in a patient of this age. Mild intracranial arterial vascular calcification. Orbits appear unremarkable. No substantial scalp swelling is seen. Partially visualized sinuses demonstrate mild mucosal thickening or mucous retention cyst/polyp in the left maxillary sinus. Diffuse density of the mastoid air cells appears similar to the prior study. No evidence of acute skull abnormality. IMPRESSION: 1. No evidence of acute intracranial hemorrhage. 2. Ventriculomegaly appears slightly greater. This could be due to atrophy or hydrocephalus. 3. 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 Electronically signed by: Neeraj York MD (01/22/2019 11:22 AM) [facility] DICTATED and SIGNED BY: NEERAJ YORK MD DATE: 01/22/19 112 Course & Med Decision Making Course & Med Decision Making Pertinent Labs and Imaging studies reviewed. (See chart for details) []78-year-old male presents to the emergency Department with complaints of altered mental status, falling to the left. Patient is a resident of nursing facility unknown last normal. 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 He as well has underlying history of epilepsy. Patient denies any acute complaints on examination. He is unable to provide history. Discussed with patient's family, appears to be close to baseline he appears a little more sleepy than usual however no other concerns Labs/Imaging reviewed no evidence of acute infectious process identified CT head negative Ammonia within normal limits, lactic acid normal Urine with evidence of UTI - Rocephin 1 gm IVP in ER Discussed admit with DR IRINEO Casey Disclaimer Jacinto Disclaimer This electronic medical record was generated, in whole or in part, using a voice recognition dictation system. Departure Departure Impression: Primary Impression: Altered mental status Additional Impression: UTI (urinary tract infection) Admitting Physician: POLA Condition: STABLE Referrals: FIGUEROA NAVA MD (PCP) Problem Qualifiers Primary Impression: Altered mental status Altered mental status type: somnolence Qualified Codes: R40.0 - Somnolence Additional Impression: UTI (urinary tract infection) Urinary tract infection type: site unspecified Hematuria presence: without hematuria Qualified Codes: N39.0 - Urinary tract infection, site not specified YUSUF MURPHY MD Jan 22, 2019 10:40
[2019-01-22 11:04] LABS: BASO % 0 % (0-3); EOS # 0.1 x10^3/uL (0.0-0.7); EOS % 1 % (0-3); HEMOGLOBIN 13.7 g/dL (13.0-17.5); LYMPH # 0.9 x10^3/uL (1.0-4.8); LYMPH % 8 % (24-48); MEAN CORPUSCULAR HEMOGLOBIN 34 pg (25-35); MEAN CORPUSCULAR HGB CONC 34 g/dL (31-37); MEAN CORPUSCULAR VOLUME 100 fL (79-100); MONO # 0.9 x10^3/uL (0.0-1.1); MONO % 9 % (0-9); NEUT # 8.5 x10^3/uL (1.8-7.7); NEUT % 82 % (31-73); PLATELET COUNT 241 x10^3/uL (140-400); RED BLOOD COUNT 4.02 x10^6/uL (4.30-5.70); RED CELL DISTRIBUTION WIDTH 14.2 % (11.5-14.5); WHITE BLOOD COUNT 10.4 x10^3/uL (4.0-11.0)
--- NOTE | 2019-01-22 11:08 | RAD ---
Single AP view of the chest. Comparison: 09/05/2017. Indication: Altered mental status Findings: The heart is enlarged but stable. There is no pneumothorax or effusion. No air space or interstitial disease. Impression: 1. No acute cardiopulmonary process. Electronically signed by: He High MD (01/22/2019 11:05 AM) [facility]
[2019-01-22 11:13] LABS: CALCIUM 8.9 mg/dL (8.5-10.1); CREATININE 0.8 mg/dL (0.7-1.3); GFR 93.5; POTASSIUM 3.8 mmol/L (3.5-5.1)
[2019-01-22 11:21] LABS: ALBUMIN 3.2 g/dL (3.4-5.0); ALBUMIN/GLOBULIN RATIO 0.8 (1.0-1.7); TOTAL BILIRUBIN 0.4 mg/dL (0.2-1.0); TOTAL PROTEIN 7.1 g/dL (6.4-8.2)
--- NOTE | 2019-01-22 11:25 | RAD ---
CT HEAD WO CONTRAST Indication: Altered mental status. Exposure: One or more of the following individualized dose reduction techniques were utilized for this examination: 1. Automated exposure control 2. Adjustment of the mA and/or kV according to patient size 3. Use of iterative reconstruction technique. Technique: Standard imaging without intravenous contrast. Comparison: Limited images from CT head of 08/26/2012, report not available. FINDINGS: No acute intracranial hemorrhage, mass effect, midline shift or abnormal extra-axial fluid collection. Generalized atrophy. Enlargement of the ventricles, appears greater than on prior study although only limited images are available from the previous exam. 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 Low-density in the white matter bilaterally, a nonspecific finding, but which is commonly due to chronic small vessel ischemic disease in a patient of this age. Mild intracranial arterial vascular calcification. Orbits appear unremarkable. No substantial scalp swelling is seen. Partially visualized sinuses demonstrate mild mucosal thickening or mucous retention cyst/polyp in the left maxillary sinus. Diffuse density of the mastoid air cells appears similar to the prior study. No evidence of acute skull abnormality. IMPRESSION: 1. No evidence of acute intracranial hemorrhage. 2. Ventriculomegaly appears slightly greater. This could be due to atrophy or hydrocephalus. 3. 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 Electronically signed by: Neeraj York MD (01/22/2019 11:22 AM) [facility]
[2019-01-22 12:47] LABS: BILIRUBIN,URINE NEGATIVE (NEG); CLARITY,URINE CLEAR; COLOR,URINE YELLOW; NITRITE,URINE NEGATIVE (NEG); PH,URINE 6.5; PROTEIN,URINE NEGATIVE (NEG-TRACE)
[2019-01-22 12:48] LABS: HCO3 ABG 22 mmol/L (21-28); PCO2 ABG 31 mmHg (35-46); PO2 ABG 80 mmHg (65-108)
[2019-01-22 12:49] LABS: BASE EXCESS ABG -1 mmol/L (-3-3); FIO2 ABG 21; SAT O2 ABG 96 % (92-99)
[2019-01-22 12:55] LABS: HYALINE CASTS, URINE MODERATE /HPF; SQUAMOUS EPITHELIAL CELL,UR FEW /LPF
[2019-01-22 12:58] LABS: BACTERIA,URINE MANY /HPF (0-FEW); RBC,URINE 0 /HPF (0-2); WBC,URINE >40 /HPF (0-4)
[2019-01-22] MEDS ORDERED: ONDANSETRON PF 4 MG/2 ML VIAL. IV PRN (13:00)
[2019-01-22] MEDS ORDERED: cefTRIAXone IV Push 1 GM VIAL. IVP ONE (13:15)
--- NOTE | 2019-01-22 13:22 | EKG ---
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
[2019-01-22] MEDS ORDERED: DIVA500T4 PO (16:55)
[2019-01-22] MEDS ORDERED: DORZ10DR6 EACHEYE (16:55)
[2019-01-22] MEDS ORDERED: ESTR1TAB15 PO (16:55)
[2019-01-22] MEDS ORDERED: DIVA250T PO (16:55)
[2019-01-22] MEDS ORDERED: MELA3TAB56 PO (16:55)
[2019-01-22] MEDS ORDERED: INFLUENZA VAX SCREEN BY RX. MC ONE (17:00)
[2019-01-22] MEDS ORDERED: ACETAMINOPHEN 325 MG TABLET. PO PRN (17:15)
--- NOTE | 2019-01-22 18:41 | HP ---
ADMIT DATE: 01/22/2019 CHIEF COMPLAINT: Mental status change. HISTORY OF PRESENT ILLNESS: The patient is a pleasant elderly male who I think resides at a residential. He appears to have right-sided stroke. He also has baseline dementia and cerebral palsy. Apparently, he has been having mental status change. We evaluated him in the ER. It appears he has UTI with metabolic encephalopathy. I discussed the case with ER physician. We are going to admit the patient and give him IV fluids and antibiotics. PAST MEDICAL HISTORY: Cerebral palsy, dementia, CHF, hyperlipidemia, epilepsy, right arm and right leg weakness, hernia repair, hip replacement. ALLERGIES: VANCOMYCIN. FAMILY HISTORY: Hypertension. SOCIAL HISTORY: I think he lives at a facility. He does not drink, smoke or take drugs. MEDICATIONS: Reviewed, please refer to the MRAD. REVIEW OF SYSTEMS: Unable to obtain. The patient is too confused. PHYSICAL EXAMINATION: VITALS: Within normal limits and are stable. GENERAL: He is well-developed, well-nourished, but has the odor of urine. HEENT: Head is normocephalic, atraumatic, pupils were equally round and reactive to light and accommodation. NECK: Supple, no JVD, no thyromegaly was noted. LUNGS: Clear to auscultation in all lung garcia without rhonchi or wheezing. HEART: RRR, S1, S2 present. Peripheral pulses intact, no obvious murmurs were noted. ABDOMEN: Soft, nontender. Positive bowel sounds no organomegaly, normal bowel sounds. EXTREMITIES: Without any cyanosis, clubbing, or edema. Pedal pulses intact, Homans sign is negative. NEUROLOGIC: He is confused and cannot move his right side. PSYCHIATRIC: Normal affect, normal mood. Stable. SKIN: No ulcerations or rashes, good skin turgor, no jaundice. VASCULAR: Good capillary refill, neurovascular bundle appears to be intact. LABORATORY DATA: Urinalysis shows moderate leukocyte esterase. Electrolytes are normal other than a BUN of 33. White count is 10, hemoglobin 13, platelets 241. CT of the head shows no evidence of acute strokes. He has some atrophy and some hydrocephalus, which I believe is his baseline. He has some areas of encephalomalacia with a cyst in the left frontal lobe. ASSESSMENT AND PLAN: Mental status change, urinary tract infection and borderline abnormal CT head for his age. The patient has been admitted. We will consult Neurology. Give him IV fluids, IV Rocephin. PT, OT, home meds, DVT prophylaxis. CODE STATUS: DNR. PROGNOSIS: Guarded. ISHAN CABELLO DO DR: PB/marissa JOB#: [id number] / [id number]
[2019-01-22 19:00] VITALS: BP 178/81
[2019-01-22] MEDS ORDERED: SIMVASTATIN 10 MG TABLET PO SCH (21:00)
[2019-01-22] MEDS ORDERED: NON FORMULARY ITEM (Melatonin 1 TAB) PO SCH (21:00)
[2019-01-22] MEDS ORDERED: DIVALPROEX EXTENDED RELEASE 250 MG TAB.ER.24H. PO SCH (21:00)
[2019-01-22] MEDS: IV NORMAL SALINE 1000ML BAG 1,000 ML IV SCH (21:49)
[2019-01-22] MEDS: LATANOPROST 0.005% OPHTH SOLUTION 2.5ML BOTTLE. OU SCH (21:49)
[2019-01-22] MEDS: DORZOLAMIDE 2% OPHTH SOLUTION 10ML BOTTLE. OU SCH (21:56)
[2019-01-22 23:00] VITALS: BP 121/88
[2019-01-23 03:00] VITALS: BP 139/80
[2019-01-23 03:05] VITALS: BP 110/38
[2019-01-23 04:37] LABS: BASO % 1 % (0-3); EOS # 0.2 x10^3/uL (0.0-0.7); EOS % 3 % (0-3); LYMPH # 1.4 x10^3/uL (1.0-4.8); LYMPH % 19 % (24-48); MEAN CORPUSCULAR HEMOGLOBIN 34 pg (25-35); MEAN CORPUSCULAR HGB CONC 34 g/dL (31-37); MEAN CORPUSCULAR VOLUME 100 fL (79-100); MONO # 0.8 x10^3/uL (0.0-1.1); MONO % 11 % (0-9); NEUT # 4.7 x10^3/uL (1.8-7.7); NEUT % 66 % (31-73); PLATELET COUNT 210 x10^3/uL (140-400); RED CELL DISTRIBUTION WIDTH 14.1 % (11.5-14.5); WHITE BLOOD COUNT 7.1 x10^3/uL (4.0-11.0)
[2019-01-23 05:05] LABS: ALBUMIN 2.7 g/dL (3.4-5.0); ALBUMIN/GLOBULIN RATIO 0.8 (1.0-1.7); CALCIUM 8.6 mg/dL (8.5-10.1); CREATININE 0.6 mg/dL (0.7-1.3); GFR 130.3; POTASSIUM 3.8 mmol/L (3.5-5.1); TOTAL BILIRUBIN 0.3 mg/dL (0.2-1.0); TOTAL PROTEIN 5.9 g/dL (6.4-8.2)
[2019-01-23 07:00] VITALS: BP 131/81
[2019-01-23] MEDS: IV NORMAL SALINE 1000ML BAG 1,000 ML IV SCH ×2 (07:50→11:11)
[2019-01-23] MEDS ORDERED: DIPHENOXYLATE/ATROPINE TABLET. PO PRN (08:30)
[2019-01-23] MEDS ORDERED: ONDANSETRON PF 4 MG/2 ML VIAL. IVP PRN (08:30)
[2019-01-23] MEDS ORDERED: PHEN97.2 PO (08:51)
[2019-01-23] MEDS ORDERED: ACET325T9 PO (08:51)
[2019-01-23] MEDS ORDERED: DIVA-53 PO (08:51)
[2019-01-23] MEDS ORDERED: DIPHENOXYLATE/ATROPINE TABLET. PO SCH (09:00)
[2019-01-23] MEDS ORDERED: PHENYTOIN SODIUM EXTENDED 100 MG CAPSULE PO SCH (09:00)
[2019-01-23] MEDS ORDERED: ESTRADIOL 1 MG TABLET. PO SCH (09:00)
[2019-01-23] MEDS ORDERED: CHOLECALCIFEROL (VITAMIN D3) 1,000 UNIT TABLET PO SCH (09:00)
[2019-01-23] MEDS ORDERED: MULTIVITAMIN I-VITE TABLET. PO SCH (09:00)
[2019-01-23] MEDS: ASPIRIN ENTERIC COATED 81 MG TABLET.DR. PO SCH (09:37)
[2019-01-23] MEDS: FUROSEMIDE 20 MG TABLET PO SCH (09:37)
[2019-01-23] MEDS: POTASSIUM CHLORIDE 10 MEQ TABLET.ER. PO SCH (09:37)
[2019-01-23] MEDS: ESTRADIOL 1 MG TABLET. PO SCH (09:38)
[2019-01-23] MEDS: PHENobarbital 32.4 MG TABLET. PO SCH (09:45)
[2019-01-23] MEDS: DORZOLAMIDE 2% OPHTH SOLUTION 10ML BOTTLE. OU SCH ×2 (09:46→22:16)
[2019-01-23] MEDS: DIVALPROEX DELAYED RELEASE 250 MG TABLET.DR. PO SCH ×2 (09:59→22:15)
--- NOTE | 2019-01-23 09:59 | PDOC ---
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 Dysphagia diet Total care History of Present Illness History of Present Illness Tried to reach staff at [facility], able to tell me total care and needs aide to feed DNR Rn tells me dysphagia 2 with thin liquids no sacral wounds HE does have uTI, started on rocephin by colleague Pt seemingly oriented to self only Calm but confused PLAN: Shift diet to dysphagia 2 and thin liq GARNISHER eval PT.OT While here I have reconciled home meds Wait for urine cx Cont rocpehin for now Neuro was consulted by colleague DNR Usman RN and [facility] staff Vitals Vitals Vital Signs Date Time Temp Pulse Resp B/P (MAP) Pulse Ox O2 Delivery O2 Flow Rate FiO2 01/23/19 07:00 97.8 78 131/81 (98) 97 97.8 01/23/19 03:00 18 Room Air Physical Exam General: No acute distress, Other (oriented to self only, senile skin turgor) Heart: Regular rate, Normal S1, Normal S2, No murmurs Lungs: Clear Abdomen: Normal bowel sounds, Soft, No tenderness Extremities: No clubbing, No cyanosis, No edema Skin: No rashes, No breakdown, No significant lesion Labs LABS Laboratory Tests Test 01/22/19 10:50 01/22/19 12:04 01/22/19 12:39 01/23/19 04:10 White Blood Count 10.4 x10^3/uL (4.0-11.0) 7.1 x10^3/uL (4.0-11.0) Red Blood Count 4.02 x10^6/uL (4.30-5.70) 3.50 x10^6/uL (4.30-5.70) Hemoglobin 13.7 g/dL (13.0-17.5) 12.0 g/dL (13.0-17.5) Hematocrit 40.0 % (39.0-53.0) 35.0 % (39.0-53.0) Mean Corpuscular Volume 100 fL (79-100) 100 fL (79-100) Mean Corpuscular Hemoglobin 34 pg (25-35) 34 pg (25-35) Mean Corpuscular Hemoglobin Concent 34 g/dL (31-37) 34 g/dL (31-37) Red Cell Distribution Width 14.2 % (11.5-14.5) 14.1 % (11.5-14.5) Platelet Count 241 x10^3/uL (140-400) 210 x10^3/uL (140-400) Neutrophils (%) (Auto) 82 % (31-73) 66 % (31-73) Lymphocytes (%) (Auto) 8 % (24-48) 19 % (24-48) Monocytes (%) (Auto) 9 % (0-9) 11 % (0-9) Eosinophils (%) (Auto) 1 % (0-3) 3 % (0-3) Basophils (%) (Auto) 0 % (0-3) 1 % (0-3) Neutrophils # (Auto) 8.5 x10^3/uL (1.8-7.7) 4.7 x10^3/uL (1.8-7.7) Lymphocytes # (Auto) 0.9 x10^3/uL (1.0-4.8) 1.4 x10^3/uL (1.0-4.8) Monocytes # (Auto) 0.9 x10^3/uL (0.0-1.1) 0.8 x10^3/uL (0.0-1.1) Eosinophils # (Auto) 0.1 x10^3/uL (0.0-0.7) 0.2 x10^3/uL (0.0-0.7) Basophils # (Auto) 0.0 x10^3/uL (0.0-0.2) 0.0 x10^3/uL (0.0-0.2) Sodium Level 141 mmol/L (136-145) 142 mmol/L (136-145) Potassium Level 3.8 mmol/L (3.5-5.1) 3.8 mmol/L (3.5-5.1) Chloride Level 105 mmol/L (98-107) 109 mmol/L (98-107) Carbon Dioxide Level 28 mmol/L (21-32) 25 mmol/L (21-32) Anion Gap 8 (6-14) 8 (6-14) Blood Urea Nitrogen 33 mg/dL (8-26) 28 mg/dL (8-26) Creatinine 0.8 mg/dL (0.7-1.3) 0.6 mg/dL (0.7-1.3) Estimated GFR (Cockcroft-Gault) 93.5 130.3 BUN/Creatinine Ratio 41 (6-20) 47 (6-20) Glucose Level 87 mg/dL (70-99) 82 mg/dL (70-99) Lactic Acid Level 1.2 mmol/L (0.4-2.0) Calcium Level 8.9 mg/dL (8.5-10.1) 8.6 mg/dL (8.5-10.1) Magnesium Level 2.0 mg/dL (1.8-2.4) Total Bilirubin 0.4 mg/dL (0.2-1.0) 0.3 mg/dL (0.2-1.0) Aspartate Amino Transf (AST/SGOT) 19 U/L (15-37) 18 U/L (15-37) Alanine Aminotransferase (ALT/SGPT) 15 U/L (16-63) 12 U/L (16-63) Alkaline Phosphatase 74 U/L (46-116) 63 U/L (46-116) Ammonia < 10 mcmol/L (11-34) Total Protein 7.1 g/dL (6.4-8.2) 5.9 g/dL (6.4-8.2) Albumin 3.2 g/dL (3.4-5.0) 2.7 g/dL (3.4-5.0) Albumin/Globulin Ratio 0.8 (1.0-1.7) 0.8 (1.0-1.7) O2 Saturation 96 % (92-99) Arterial Blood pH 7.46 (7.35-7.45) Arterial Blood pCO2 at Patient Temp 31 mmHg (35-46) Arterial Blood pO2 at Patient Temp 80 mmHg (65-108) Arterial Blood HCO3 22 mmol/L (21-28) Arterial Blood Base Excess -1 mmol/L (-3-3) FiO2 21 Urine Collection Type Unknown Urine Color Yellow Urine Clarity Clear Urine pH 6.5 Urine Specific [employer] [place] 1.020 Urine Protein Negative mg/dL (NEG-TRACE) Urine Glucose (UA) Negative mg/dL (NEG) Urine Ketones (Stick) Negative mg/dL (NEG) Urine Blood Negative (NEG) Urine Nitrite Negative (NEG) Urine Bilirubin Negative (NEG) Urine Urobilinogen Dipstick 2.0 mg/dL (0.2 mg/dL) Urine Leukocyte Esterase Moderate (NEG) Urine RBC 0 /HPF (0-2) Urine WBC >40 /HPF (0-4) Urine Squamous Epithelial Cells Few /LPF Urine Transitional Epithelial Cells Few /LPF Urine Bacteria Many /HPF (0-FEW) Urine Hyaline Casts Moderate /HPF Urine Mucus Mod /LPF Review of Systems Review of Systems limited,dementia Assessment and Plan Assessmemt and Plan Problems Medical Problems: (1) Altered mental status Status: Acute (2) UTI (urinary tract infection) Status: Acute Comment Review of Relevant I have reviewed the following items jody (where applicable) has been applied. Labs Laboratory Tests Test 01/22/19 10:50 01/22/19 12:04 01/22/19 12:39 01/23/19 04:10 White Blood Count 10.4 x10^3/uL (4.0-11.0) 7.1 x10^3/uL (4.0-11.0) Red Blood Count 4.02 x10^6/uL (4.30-5.70) 3.50 x10^6/uL (4.30-5.70) Hemoglobin 13.7 g/dL (13.0-17.5) 12.0 g/dL (13.0-17.5) Hematocrit 40.0 % (39.0-53.0) 35.0 % (39.0-53.0) Mean Corpuscular Volume 100 fL (79-100) 100 fL (79-100) Mean Corpuscular Hemoglobin 34 pg (25-35) 34 pg (25-35) Mean Corpuscular Hemoglobin Concent 34 g/dL (31-37) 34 g/dL (31-37) Red Cell Distribution Width 14.2 % (11.5-14.5) 14.1 % (11.5-14.5) Platelet Count 241 x10^3/uL (140-400) 210 x10^3/uL (140-400) Neutrophils (%) (Auto) 82 % (31-73) 66 % (31-73) Lymphocytes (%) (Auto) 8 % (24-48) 19 % (24-48) Monocytes (%) (Auto) 9 % (0-9) 11 % (0-9) Eosinophils (%) (Auto) 1 % (0-3) 3 % (0-3) Basophils (%) (Auto) 0 % (0-3) 1 % (0-3) Neutrophils # (Auto) 8.5 x10^3/uL (1.8-7.7) 4.7 x10^3/uL (1.8-7.7) Lymphocytes # (Auto) 0.9 x10^3/uL (1.0-4.8) 1.4 x10^3/uL (1.0-4.8) Monocytes # (Auto) 0.9 x10^3/uL (0.0-1.1) 0.8 x10^3/uL (0.0-1.1) Eosinophils # (Auto) 0.1 x10^3/uL (0.0-0.7) 0.2 x10^3/uL (0.0-0.7) Basophils # (Auto) 0.0 x10^3/uL (0.0-0.2) 0.0 x10^3/uL (0.0-0.2) Sodium Level 141 mmol/L (136-145) 142 mmol/L (136-145) Potassium Level 3.8 mmol/L (3.5-5.1) 3.8 mmol/L (3.5-5.1) Chloride Level 105 mmol/L (98-107) 109 mmol/L (98-107) Carbon Dioxide Level 28 mmol/L (21-32) 25 mmol/L (21-32) Anion Gap 8 (6-14) 8 (6-14) Blood Urea Nitrogen 33 mg/dL (8-26) 28 mg/dL (8-26) Creatinine 0.8 mg/dL (0.7-1.3) 0.6 mg/dL (0.7-1.3) Estimated GFR (Cockcroft-Gault) 93.5 130.3 BUN/Creatinine Ratio 41 (6-20) 47 (6-20) Glucose Level 87 mg/dL (70-99) 82 mg/dL (70-99) Lactic Acid Level 1.2 mmol/L (0.4-2.0) Calcium Level 8.9 mg/dL (8.5-10.1) 8.6 mg/dL (8.5-10.1) Magnesium Level 2.0 mg/dL (1.8-2.4) Total Bilirubin 0.4 mg/dL (0.2-1.0) 0.3 mg/dL (0.2-1.0) Aspartate Amino Transf (AST/SGOT) 19 U/L (15-37) 18 U/L (15-37) Alanine Aminotransferase (ALT/SGPT) 15 U/L (16-63) 12 U/L (16-63) Alkaline Phosphatase 74 U/L (46-116) 63 U/L (46-116) Ammonia < 10 mcmol/L (11-34) Total Protein 7.1 g/dL (6.4-8.2) 5.9 g/dL (6.4-8.2) Albumin 3.2 g/dL (3.4-5.0) 2.7 g/dL (3.4-5.0) Albumin/Globulin Ratio 0.8 (1.0-1.7) 0.8 (1.0-1.7) O2 Saturation 96 % (92-99) Arterial Blood pH 7.46 (7.35-7.45) Arterial Blood pCO2 at Patient Temp 31 mmHg (35-46) Arterial Blood pO2 at Patient Temp 80 mmHg (65-108) Arterial Blood HCO3 22 mmol/L (21-28) Arterial Blood Base Excess -1 mmol/L (-3-3) FiO2 21 Urine Collection Type Unknown Urine Color Yellow Urine Clarity Clear Urine pH 6.5 Urine Specific [employer] [place] 1.020 Urine Protein Negative mg/dL (NEG-TRACE) Urine Glucose (UA) Negative mg/dL (NEG) Urine Ketones (Stick) Negative mg/dL (NEG) Urine Blood Negative (NEG) Urine Nitrite Negative (NEG) Urine Bilirubin Negative (NEG) Urine Urobilinogen Dipstick 2.0 mg/dL (0.2 mg/dL) Urine Leukocyte Esterase Moderate (NEG) Urine RBC 0 /HPF (0-2) Urine WBC >40 /HPF (0-4) Urine Squamous Epithelial Cells Few /LPF Urine Transitional Epithelial Cells Few /LPF Urine Bacteria Many /HPF (0-FEW) Urine Hyaline Casts Moderate /HPF Urine Mucus Mod /LPF Laboratory Tests Test 01/22/19 10:50 01/22/19 12:04 01/22/19 12:39 01/23/19 04:10 White Blood Count 10.4 x10^3/uL (4.0-11.0) 7.1 x10^3/uL (4.0-11.0) Red Blood Count 4.02 x10^6/uL (4.30-5.70) 3.50 x10^6/uL (4.30-5.70) Hemoglobin 13.7 g/dL (13.0-17.5) 12.0 g/dL (13.0-17.5) Hematocrit 40.0 % (39.0-53.0) 35.0 % (39.0-53.0) Mean Corpuscular Volume 100 fL (79-100) 100 fL (79-100) Mean Corpuscular Hemoglobin 34 pg (25-35) 34 pg (25-35) Mean Corpuscular Hemoglobin Concent 34 g/dL (31-37) 34 g/dL (31-37) Red Cell Distribution Width 14.2 % (11.5-14.5) 14.1 % (11.5-14.5) Platelet Count 241 x10^3/uL (140-400) 210 x10^3/uL (140-400) Neutrophils (%) (Auto) 82 % (31-73) 66 % (31-73) Lymphocytes (%) (Auto) 8 % (24-48) 19 % (24-48) Monocytes (%) (Auto) 9 % (0-9) 11 % (0-9) Eosinophils (%) (Auto) 1 % (0-3) 3 % (0-3) Basophils (%) (Auto) 0 % (0-3) 1 % (0-3) Neutrophils # (Auto) 8.5 x10^3/uL (1.8-7.7) 4.7 x10^3/uL (1.8-7.7) Lymphocytes # (Auto) 0.9 x10^3/uL (1.0-4.8) 1.4 x10^3/uL (1.0-4.8) Monocytes # (Auto) 0.9 x10^3/uL (0.0-1.1) 0.8 x10^3/uL (0.0-1.1) Eosinophils # (Auto) 0.1 x10^3/uL (0.0-0.7) 0.2 x10^3/uL (0.0-0.7) Basophils # (Auto) 0.0 x10^3/uL (0.0-0.2) 0.0 x10^3/uL (0.0-0.2) Sodium Level 141 mmol/L (136-145) 142 mmol/L (136-145) Potassium Level 3.8 mmol/L (3.5-5.1) 3.8 mmol/L (3.5-5.1) Chloride Level 105 mmol/L (98-107) 109 mmol/L (98-107) Carbon Dioxide Level 28 mmol/L (21-32) 25 mmol/L (21-32) Anion Gap 8 (6-14) 8 (6-14) Blood Urea Nitrogen 33 mg/dL (8-26) 28 mg/dL (8-26) Creatinine 0.8 mg/dL (0.7-1.3) 0.6 mg/dL (0.7-1.3) Estimated GFR (Cockcroft-Gault) 93.5 130.3 BUN/Creatinine Ratio 41 (6-20) 47 (6-20) Glucose Level 87 mg/dL (70-99) 82 mg/dL (70-99) Lactic Acid Level 1.2 mmol/L (0.4-2.0) Calcium Level 8.9 mg/dL (8.5-10.1) 8.6 mg/dL (8.5-10.1) Magnesium Level 2.0 mg/dL (1.8-2.4) Total Bilirubin 0.4 mg/dL (0.2-1.0) 0.3 mg/dL (0.2-1.0) Aspartate Amino Transf (AST/SGOT) 19 U/L (15-37) 18 U/L (15-37) Alanine Aminotransferase (ALT/SGPT) 15 U/L (16-63) 12 U/L (16-63) Alkaline Phosphatase 74 U/L (46-116) 63 U/L (46-116) Ammonia < 10 mcmol/L (11-34) Total Protein 7.1 g/dL (6.4-8.2) 5.9 g/dL (6.4-8.2) Albumin 3.2 g/dL (3.4-5.0) 2.7 g/dL (3.4-5.0) Albumin/Globulin Ratio 0.8 (1.0-1.7) 0.8 (1.0-1.7) O2 Saturation 96 % (92-99) Arterial Blood pH 7.46 (7.35-7.45) Arterial Blood pCO2 at Patient Temp 31 mmHg (35-46) Arterial Blood pO2 at Patient Temp 80 mmHg (65-108) Arterial Blood HCO3 22 mmol/L (21-28) Arterial Blood Base Excess -1 mmol/L (-3-3) FiO2 21 Urine Collection Type Unknown Urine Color Yellow Urine Clarity Clear Urine pH 6.5 Urine Specific [employer] [place] 1.020 Urine Protein Negative mg/dL (NEG-TRACE) Urine Glucose (UA) Negative mg/dL (NEG) Urine Ketones (Stick) Negative mg/dL (NEG) Urine Blood Negative (NEG) Urine Nitrite Negative (NEG) Urine Bilirubin Negative (NEG) Urine Urobilinogen Dipstick 2.0 mg/dL (0.2 mg/dL) Urine Leukocyte Esterase Moderate (NEG) Urine RBC 0 /HPF (0-2) Urine WBC >40 /HPF (0-4) Urine Squamous Epithelial Cells Few /LPF Urine Transitional Epithelial Cells Few /LPF Urine Bacteria Many /HPF (0-FEW) Urine Hyaline Casts Moderate /HPF Urine Mucus Mod /LPF Medications Current Medications Ondansetron HCl (Zofran) 4 mg PRN Q8HRS PRN IV NAUSEA/VOMITING; Start 01/22/19 at 13:00; Stop 01/23/19 at 08:33; Status DC Ceftriaxone Sodium (Rocephin) 1 gm 1X ONCE IVP Last administered on 01/22/19at 13:29; Start 01/22/19 at 13:15; Stop 01/22/19 at 13:16; Status DC Info (FLU VACCINE SCREEN per RX) 1 each 1X ONCE MC ; Start 01/22/19 at 17:00; Stop 01/22/19 at 17:01; Status DC Acetaminophen (Tylenol) 650 mg PRN Q6HRS PRN PO MILD PAIN / TEMP; Start 01/22/19 at 17:15 Aspirin (Ecotrin) 81 mg DAILY PO Last administered on 01/23/19at 09:37; Start 01/23/19 at 09:00 Divalproex Sodium (Depakote Er) 250 mg BID PO Last administered on 01/22/19at 21:49; Start 01/22/19 at 21:00; Stop 01/23/19 at 08:57; Status DC Divalproex Sodium (Depakote Er) 500 mg DAILYBFRLUN PO ; Start 01/23/19 at 11:30 Dorzolamide HCl (Trusopt) 1 drop BID OU Last administered on 01/23/19at 09:46; Start 01/22/19 at 21:00 Estradiol (Estrace) 0.5 mg DAILY PO ; Start 01/23/19 at 09:00; Stop 01/23/19 at 08:54; Status DC Furosemide (Lasix) 20 mg DAILY PO Last administered on 01/23/19at 09:37; Start 01/23/19 at 09:00 Latanoprost (Xalatan) 1 drop HS OU Last administered on 01/22/19 21:49; Start 01/22/19 at 21:00 Potassium Chloride (Klor-Con) 10 meq DAILY PO Last administered on 01/23/19at 09:37; Start 01/23/19 at 09:00 Non-Formulary Medication (Melatonin ) 1 tab QHS PO ; Start 01/22/19 at 21:00; Status UNV Phenobarbital (Luminal) 97.2 mg DAILY PO Last administered on 01/23/19at 09:45; Start 01/23/19 at 09:00 Simvastatin (Zocor) 10 mg QHS PO Last administered on 01/22/19at 21:49; Start 01/22/19 at 21:00; Stop 01/23/19 at 08:56; Status DC Sodium Chloride 1,000 ml @ 75 mls/hr [id number] IV Last administered on 01/22/19at 21:49; Start 01/22/19 at 18:30 Ceftriaxone Sodium (Rocephin) 1 gm Q24H IVP ; Start 01/23/19 at 13:00 Ondansetron HCl (Zofran) 4 mg PRN Q6HRS PRN IVP NAUSEA/VOMITING; Start 01/23/19 at 08:30 Diphenoxylate HCl/ Atropine (Lomotil) 1 tab QID PRN PO DIARRHEA; Start 01/23/19 at 08:30; Status Cancel Diphenoxylate HCl/ Atropine (Lomotil) 2 tab WEEKLY PO ; Start 01/23/19 at 09:00; Status UNV Phenytoin Sodium (Dilantin) 100 mg DAILY PO ; Start 01/23/19 at 09:00; Status Cancel Simvastatin (Zocor) 10 mg HS PO ; Start 01/23/19 at 21:00; Status UNV Multivitamins/ Minerals (I-Simran) 1 tab DAILY PO ; Start 01/23/19 at 09:00; Status Cancel Non-Formulary Medication (Brinzolamide (Azopt)) 10 ml HS OP ; Start 01/23/19 at 21:00; Status UNV Vitamin D (Vitamin D3) 2,000 unit DAILY PO ; Start 01/23/19 at 09:00; Status Cancel Estradiol (Estrace) 1 mg DAILY PO Last administered on 01/23/19at 09:38; Start 01/23/19 at 09:00 Divalproex Sodium (Depakote) 250 mg BID PO ; Start 01/23/19 at 09:00 Active Scripts Active Xalatan (Latanoprost) 1 Drop Drops 1 Drop OU HS Reported Phenobarbital 97.2 Mg Tablet 97.2 Mg PO DAILY Divalproex Sodium 500 Mg Tablet.dr 250 Mg PO BID Tylenol (Acetaminophen) 325 Mg Tablet 650 Mg PO PRN Q4HRS PRN Dorzolamide Hcl 10 Ml Drops 1 Drop EACHEYE BID Melatonin 3 Mg Tablet 1 Tab PO QHS Depakote Er (Divalproex Sodium) 500 Mg Tab.er.24h 1 Tab PO DAILYBFRLUN Klor-Con 10 (Potassium Chloride) 10 Meq Tablet.er 10 Meq PO DAILY Lasix (Furosemide) 20 Mg Tablet 20 Mg PO DAILY Aspir 81 (Aspirin) 81 Mg Tablet.dr 81 Mg PO DAILY Vitals/I & O Vital Sign - Last 24 Hours 01/22/19 01/22/19 01/22/19 01/22/19 10:31 11:04 11:34 12:04 Temp 98.2 98.2 Pulse 88 84 80 85 Resp 18 16 16 16 B/P (MAP) 132/75 (94) Pulse Ox 98 97 97 97 O2 Delivery Room Air 01/22/19 01/22/19 01/22/19 01/22/19 12:34 13:36 14:04 17:14 Pulse 80 85 76 Resp 16 16 Pulse Ox 98 97 97 O2 Delivery Room Air 01/22/19 01/22/19 01/22/19 01/23/19 19:00 20:15 23:00 03:00 Temp 99.4 98.9 98.6 99.4 98.9 98.6 Pulse 94 91 87 Resp 18 18 18 B/P (MAP) 178/81 (113) 121/88 (99) 139/80 (99) Pulse Ox 93 95 95 O2 Delivery Room Air Room Air Room Air Room Air 01/23/19 07:00 Temp 97.8 97.8 Pulse 78 B/P (MAP) 131/81 (98) Pulse Ox 97 Intake and Output 01/22/19 01/22/19 01/23/19 15:00 23:00 07:00 Intake Total 0 ml 50 ml Balance 0 ml 50 ml MERVIN PADRON MD Jan 23, 2019 09:59
[2019-01-23 11:00] VITALS: BP 127/75
[2019-01-23] MEDS: DIVALPROEX EXTENDED RELEASE 500 MG TAB.ER.24H. PO SCH (11:08)
[2019-01-23] MEDS: ENOXAPARIN 40 MG/0.4 ML SYRINGE. SQ SCH (11:08)
--- NOTE | 2019-01-23 12:46 | PDOC2 ---
NEUROLOGY CONSULT Date of Admission Date of Admission DATE: 01/23/19 TIME: 12:35 Reason for Consult Reason for Consult: Altered mental status Referring Physician Referring Physician: Dr. Belcher Source Source: Chart review History of Present Illness History of Present Illness The patient is a 78-year-old right-handed male with altered mental status, sent in from his nursing facility. Apparently he was also falling to the left. 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 There is no mention of any recent seizure activity. Patient is unable to provide any history. Past Medical History Cardiovascular: CHF, HTN, Hyperlipidemia CENTRAL NERVOUS SYSTEM: Dementia (cerebral palsy), Other Musculoskeletal: Osteoarthritis, Muscle atrophy ENT: Other (glaucoma) Renal/: Urinary Incontinence Past Surgical History Past Surgical History: Hernia Repair, Other (R arm; R leg R hip) Family History Family History: No pertinent hx Social History Social History correction resident, no family available Current Medications Current Medications Current Medications Ondansetron HCl (Zofran) 4 mg PRN Q8HRS PRN IV NAUSEA/VOMITING; Start 01/22/19 at 13:00; Stop 01/23/19 at 08:33; Status DC Ceftriaxone Sodium (Rocephin) 1 gm 1X ONCE IVP Last administered on 01/22/19at 13:29; Start 01/22/19 at 13:15; Stop 01/22/19 at 13:16; Status DC Info (FLU VACCINE SCREEN per RX) 1 each 1X ONCE MC ; Start 01/22/19 at 17:00; Stop 01/22/19 at 17:01; Status DC Acetaminophen (Tylenol) 650 mg PRN Q6HRS PRN PO MILD PAIN / TEMP; Start 01/22/19 at 17:15 Aspirin (Ecotrin) 81 mg DAILY PO Last administered on 01/23/19at 09:37; Start 01/23/19 at 09:00 Divalproex Sodium (Depakote Er) 250 mg BID PO Last administered on 01/22/19at 21:49; Start 01/22/19 at 21:00; Stop 01/23/19 at 08:57; Status DC Divalproex Sodium (Depakote Er) 500 mg DAILYBFRLUN PO Last administered on 01/23/19at 11:08; Start 01/23/19 at 11:30 Dorzolamide HCl (Trusopt) 1 drop BID OU Last administered on 01/23/19at 09:46; Start 01/22/19 at 21:00 Estradiol (Estrace) 0.5 mg DAILY PO ; Start 01/23/19 at 09:00; Stop 01/23/19 at 08:54; Status DC Furosemide (Lasix) 20 mg DAILY PO Last administered on 01/23/19at 09:37; Start 01/23/19 at 09:00 Latanoprost (Xalatan) 1 drop HS OU Last administered on 01/22/19at 21:49; Start 01/22/19 at 21:00 Potassium Chloride (Klor-Con) 10 meq DAILY PO Last administered on 01/23/19at 09:37; Start 01/23/19 at 09:00 Non-Formulary Medication (Melatonin ) 1 tab QHS PO ; Start 01/22/19 at 21:00; Status UNV Phenobarbital (Luminal) 97.2 mg DAILY PO Last administered on 01/23/19at 09:45; Start 01/23/19 at 09:00 Simvastatin (Zocor) 10 mg QHS PO Last administered on 01/22/19at 21:49; Start 01/22/19 at 21:00; Stop 01/23/19 at 08:56; Status DC Sodium Chloride 1,000 ml @ 75 mls/hr [id number] IV Last administered on 01/23/19at 11:11; Start 01/22/19 at 18:30 Ceftriaxone Sodium (Rocephin) 1 gm Q24H IVP ; Start 01/23/19 at 13:00 Ondansetron HCl (Zofran) 4 mg PRN Q6HRS PRN IVP NAUSEA/VOMITING; Start 01/23/19 at 08:30 Diphenoxylate HCl/ Atropine (Lomotil) 1 tab QID PRN PO DIARRHEA; Start 01/23/19 at 08:30; Status Cancel Diphenoxylate HCl/ Atropine (Lomotil) 2 tab WEEKLY PO ; Start 01/23/19 at 09:00; Status UNV Phenytoin Sodium (Dilantin) 100 mg DAILY PO ; Start 01/23/19 at 09:00; Status Cancel Simvastatin (Zocor) 10 mg HS PO ; Start 01/23/19 at 21:00; Status UNV Multivitamins/ Minerals (I-Simran) 1 tab DAILY PO ; Start 01/23/19 at 09:00; Status Cancel Non-Formulary Medication (Brinzolamide (Azopt)) 10 ml HS OP ; Start 01/23/19 at 21:00; Status UNV Vitamin D (Vitamin D3) 2,000 unit DAILY PO ; Start 01/23/19 at 09:00; Status Cancel Estradiol (Estrace) 1 mg DAILY PO Last administered on 01/23/19at 09:38; Start 01/23/19 at 09:00 Divalproex Sodium (Depakote) 250 mg BID PO Last administered on 01/23/19at 09:59; Start 01/23/19 at 09:00 Enoxaparin Sodium (Lovenox 40mg Syringe) 40 mg Q24H SQ Last administered on 01/23/19at 11:08; Start 01/23/19 at 11:00 Active Scripts Active Xalatan (Latanoprost) 1 Drop Drops 1 Drop OU HS Reported Phenobarbital 97.2 Mg Tablet 97.2 Mg PO DAILY Divalproex Sodium 500 Mg Tablet.dr 250 Mg PO BID Tylenol (Acetaminophen) 325 Mg Tablet 650 Mg PO PRN Q4HRS PRN Dorzolamide Hcl 10 Ml Drops 1 Drop EACHEYE BID Melatonin 3 Mg Tablet 1 Tab PO QHS Depakote Er (Divalproex Sodium) 500 Mg Tab.er.24h 1 Tab PO DAILYBFRLUN Klor-Con 10 (Potassium Chloride) 10 Meq Tablet.er 10 Meq PO DAILY Lasix (Furosemide) 20 Mg Tablet 20 Mg PO DAILY Aspir 81 (Aspirin) 81 Mg Tablet.dr 81 Mg PO DAILY Allergies Allergies: Coded Allergies: vancomycin (Verified Allergy, Intermediate, REDNESS AT SITE OF INFUSION, 06/22/16) I S O L A T I O N *CONTACT* (Verified Allergy, Unknown, 09/09/17) mrsa ROS Review of System Unobtainable Physical Exam Physical Examination General: Well-developed, well-nourished white male in no acute distress HEENT: Normocephalic andatraumatic.Temporal arteriespulsatile and nontender. Neck: Supple without bruit, no meningismus Musculoskeletal: Stability:see neurologic. Gait exam:see neurologic. Tone:see neurologic.St rength:see neurologic. Neurological: Mental Status:orientation, memory, attention span/concentration, language, fund of knowledge: Grunts replies, nonverbal, does not follow commands. Cranial Nerves:Pupils equal and reactive to light, extraocular movements areintact. There is no facial asymmetry. All other cranial related problems are negative except as mentioned before.Reflexes:1+ and symmetric with flexor plantar responses. Motor:bilateral spastic tone, quadriplegia Coordination and gait:not cooperative. Sensory:not cooperative. Vitals VITALS Vital Signs Date Time Temp Pulse Resp B/P (MAP) Pulse Ox O2 Delivery O2 Flow Rate FiO2 01/23/19 08:00 Room Air 01/23/19 07:00 97.8 78 131/81 (98) 97 97.8 01/23/19 03:00 18 Labs Labs Laboratory Tests Test 01/22/19 10:50 01/22/19 12:04 01/22/19 12:39 01/23/19 04:10 White Blood Count 10.4 x10^3/uL (4.0-11.0) 7.1 x10^3/uL (4.0-11.0) Red Blood Count 4.02 x10^6/uL (4.30-5.70) 3.50 x10^6/uL (4.30-5.70) Hemoglobin 13.7 g/dL (13.0-17.5) 12.0 g/dL (13.0-17.5) Hematocrit 40.0 % (39.0-53.0) 35.0 % (39.0-53.0) Mean Corpuscular Volume 100 fL (79-100) 100 fL (79-100) Mean Corpuscular Hemoglobin 34 pg (25-35) 34 pg (25-35) Mean Corpuscular Hemoglobin Concent 34 g/dL (31-37) 34 g/dL (31-37) Red Cell Distribution Width 14.2 % (11.5-14.5) 14.1 % (11.5-14.5) Platelet Count 241 x10^3/uL (140-400) 210 x10^3/uL (140-400) Neutrophils (%) (Auto) 82 % (31-73) 66 % (31-73) Lymphocytes (%) (Auto) 8 % (24-48) 19 % (24-48) Monocytes (%) (Auto) 9 % (0-9) 11 % (0-9) Eosinophils (%) (Auto) 1 % (0-3) 3 % (0-3) Basophils (%) (Auto) 0 % (0-3) 1 % (0-3) Neutrophils # (Auto) 8.5 x10^3/uL (1.8-7.7) 4.7 x10^3/uL (1.8-7.7) Lymphocytes # (Auto) 0.9 x10^3/uL (1.0-4.8) 1.4 x10^3/uL (1.0-4.8) Monocytes # (Auto) 0.9 x10^3/uL (0.0-1.1) 0.8 x10^3/uL (0.0-1.1) Eosinophils # (Auto) 0.1 x10^3/uL (0.0-0.7) 0.2 x10^3/uL (0.0-0.7) Basophils # (Auto) 0.0 x10^3/uL (0.0-0.2) 0.0 x10^3/uL (0.0-0.2) Sodium Level 141 mmol/L (136-145) 142 mmol/L (136-145) Potassium Level 3.8 mmol/L (3.5-5.1) 3.8 mmol/L (3.5-5.1) Chloride Level 105 mmol/L (98-107) 109 mmol/L (98-107) Carbon Dioxide Level 28 mmol/L (21-32) 25 mmol/L (21-32) Anion Gap 8 (6-14) 8 (6-14) Blood Urea Nitrogen 33 mg/dL (8-26) 28 mg/dL (8-26) Creatinine 0.8 mg/dL (0.7-1.3) 0.6 mg/dL (0.7-1.3) Estimated GFR (Cockcroft-Gault) 93.5 130.3 BUN/Creatinine Ratio 41 (6-20) 47 (6-20) Glucose Level 87 mg/dL (70-99) 82 mg/dL (70-99) Lactic Acid Level 1.2 mmol/L (0.4-2.0) Calcium Level 8.9 mg/dL (8.5-10.1) 8.6 mg/dL (8.5-10.1) Magnesium Level 2.0 mg/dL (1.8-2.4) Total Bilirubin 0.4 mg/dL (0.2-1.0) 0.3 mg/dL (0.2-1.0) Aspartate Amino Transf (AST/SGOT) 19 U/L (15-37) 18 U/L (15-37) Alanine Aminotransferase (ALT/SGPT) 15 U/L (16-63) 12 U/L (16-63) Alkaline Phosphatase 74 U/L (46-116) 63 U/L (46-116) Ammonia < 10 mcmol/L (11-34) Total Protein 7.1 g/dL (6.4-8.2) 5.9 g/dL (6.4-8.2) Albumin 3.2 g/dL (3.4-5.0) 2.7 g/dL (3.4-5.0) Albumin/Globulin Ratio 0.8 (1.0-1.7) 0.8 (1.0-1.7) O2 Saturation 96 % (92-99) Arterial Blood pH 7.46 (7.35-7.45) Arterial Blood pCO2 at Patient Temp 31 mmHg (35-46) Arterial Blood pO2 at Patient Temp 80 mmHg (65-108) Arterial Blood HCO3 22 mmol/L (21-28) Arterial Blood Base Excess -1 mmol/L (-3-3) FiO2 21 Urine Collection Type Unknown Urine Color Yellow Urine Clarity Clear Urine pH 6.5 Urine Specific [place] 1.020 Urine Protein Negative mg/dL (NEG-TRACE) Urine Glucose (UA) Negative mg/dL (NEG) Urine Ketones (Stick) Negative mg/dL (NEG) Urine Blood Negative (NEG) Urine Nitrite Negative (NEG) Urine Bilirubin Negative (NEG) Urine Urobilinogen Dipstick 2.0 mg/dL (0.2 mg/dL) Urine Leukocyte Esterase Moderate (NEG) Urine RBC 0 /HPF (0-2) Urine WBC >40 /HPF (0-4) Urine Squamous Epithelial Cells Few /LPF Urine Transitional Epithelial Cells Few /LPF Urine Bacteria Many /HPF (0-FEW) Urine Hyaline Casts Moderate /HPF Urine Mucus Mod /LPF Laboratory Tests Test 01/22/19 12:39 01/23/19 04:10 Urine Collection Type Unknown Urine Color Yellow Urine Clarity Clear Urine pH 6.5 Urine Specific [place] 1.020 Urine Protein Negative mg/dL (NEG-TRACE) Urine Glucose (UA) Negative mg/dL (NEG) Urine Ketones (Stick) Negative mg/dL (NEG) Urine Blood Negative (NEG) Urine Nitrite Negative (NEG) Urine Bilirubin Negative (NEG) Urine Urobilinogen Dipstick 2.0 mg/dL (0.2 mg/dL) Urine Leukocyte Esterase Moderate (NEG) Urine RBC 0 /HPF (0-2) Urine WBC >40 /HPF (0-4) Urine Squamous Epithelial Cells Few /LPF Urine Transitional Epithelial Cells Few /LPF Urine Bacteria Many /HPF (0-FEW) Urine Hyaline Casts Moderate /HPF Urine Mucus Mod /LPF White Blood Count 7.1 x10^3/uL (4.0-11.0) Red Blood Count 3.50 x10^6/uL (4.30-5.70) Hemoglobin 12.0 g/dL (13.0-17.5) Hematocrit 35.0 % (39.0-53.0) Mean Corpuscular Volume 100 fL (79-100) Mean Corpuscular Hemoglobin 34 pg (25-35) Mean Corpuscular Hemoglobin Concent 34 g/dL (31-37) Red Cell Distribution Width 14.1 % (11.5-14.5) Platelet Count 210 x10^3/uL (140-400) Neutrophils (%) (Auto) 66 % (31-73) Lymphocytes (%) (Auto) 19 % (24-48) Monocytes (%) (Auto) 11 % (0-9) Eosinophils (%) (Auto) 3 % (0-3) Basophils (%) (Auto) 1 % (0-3) Neutrophils # (Auto) 4.7 x10^3/uL (1.8-7.7) Lymphocytes # (Auto) 1.4 x10^3/uL (1.0-4.8) Monocytes # (Auto) 0.8 x10^3/uL (0.0-1.1) Eosinophils # (Auto) 0.2 x10^3/uL (0.0-0.7) Basophils # (Auto) 0.0 x10^3/uL (0.0-0.2) Sodium Level 142 mmol/L (136-145) Potassium Level 3.8 mmol/L (3.5-5.1) Chloride Level 109 mmol/L (98-107) Carbon Dioxide Level 25 mmol/L (21-32) Anion Gap 8 (6-14) Blood Urea Nitrogen 28 mg/dL (8-26) Creatinine 0.6 mg/dL (0.7-1.3) Estimated GFR (Cockcroft-Gault) 130.3 BUN/Creatinine Ratio 47 (6-20) Glucose Level 82 mg/dL (70-99) Calcium Level 8.6 mg/dL (8.5-10.1) Total Bilirubin 0.3 mg/dL (0.2-1.0) Aspartate Amino Transf (AST/SGOT) 18 U/L (15-37) Alanine Aminotransferase (ALT/SGPT) 12 U/L (16-63) Alkaline Phosphatase 63 U/L (46-116) Total Protein 5.9 g/dL (6.4-8.2) Albumin 2.7 g/dL (3.4-5.0) Albumin/Globulin Ratio 0.8 (1.0-1.7) Images Images CT HEAD WO CONTRAST Indication: Altered mental status. Exposure: One or more of the following individualized dose reduction techniques were utilized for this examination: 1. Automated exposure control 2. Adjustment of the mA and/or kV according to patient size 3. Use of iterative reconstruction technique. Technique: Standard imaging without intravenous contrast. Comparison: Limited images from CT head of 08/26/2012, report not available. FINDINGS: No acute intracranial hemorrhage, mass effect, midline shift or abnormal extra-axial fluid collection. Generalized atrophy. Enlargement of the ventricles, appears greater than on prior study although only limited images are available from the previous exam. 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 Low-density in the white matter bilaterally, a nonspecific finding, but which is commonly due to chronic small vessel ischemic disease in a patient of this age. Mild intracranial arterial vascular calcification. Orbits appear unremarkable. No substantial scalp swelling is seen. Partially visualized sinuses demonstrate mild mucosal thickening or mucous retention cyst/polyp in the left maxillary sinus. Diffuse density of the mastoid air cells appears similar to the prior study. No evidence of acute skull abnormality. IMPRESSION: 1. No evidence of acute intracranial hemorrhage. 2. Ventriculomegaly appears slightly greater. This could be due to atrophy or hydrocephalus. 3. 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 Assessment/Plan Assessment/Plan Impression: Cerebral palsy with known left frontal encephalomalacia and right-sided spastic hemiparesis, he is actually weak on both sides. He is getting more demented. There is more cerebral atrophy. I find no evidence of acute stroke, central nervous system infection, or ongoing seizure activity. Baseline is apparently full care including feeding, nonverbal. Urinary tract infection causing some metabolic encephalopathy. Recommendations: I see no need for additional neurological studies such as MRI or EEG Continue current medications, note that he is on valproic acid Treatment for urinary tract infection. Thank you for letting me help with the patient's care. JAMI HIGUERA MD Jan 23, 2019 12:46
[2019-01-23] MEDS ORDERED: cefTRIAXone IV Push 1 GM VIAL. IVP SCH (13:00)
[2019-01-23 19:00] VITALS: BP 131/77
[2019-01-23] MEDS ORDERED: BRINZOLAMIDE OP SCH (21:00)
[2019-01-23] MEDS ORDERED: SIMVASTATIN 10 MG TABLET PO SCH (21:00)
[2019-01-23] MEDS: LACTOBACILLUS RHAMNOSUS GG 1 CAPSULE. PO SCH (22:15)
[2019-01-23] MEDS: LATANOPROST 0.005% OPHTH SOLUTION 2.5ML BOTTLE. OU SCH (22:16)
[2019-01-23 23:00] VITALS: BP 129/80
[2019-01-24 03:00] VITALS: BP 130/82
--- NOTE | 2019-01-24 08:11 | SNU/HH DC ---
DISCHARGE ORDERS DISCHARGE INFORMATION: DISCHARGE DATE: Jan 24, 2019 FINAL DIAGNOSIS Problems Medical Problems: (1) Altered mental status Status: Acute (2) UTI (urinary tract infection) Status: Acute CONDITION ON DISCHARGE: Stable CODE STATUS: Code Status: DNR/DNI LONG TERM: SNF STAY <30 DAYS: Yes HOSPICE: HOSPICE: No HOSPICE EVAL & TREAT: No LTAC: ADMIT TO LTAC: No POST DISCHARGE ORDERS: ACTIVITY ORDERS: Activity as tolerated WEIGHT BEARING STATUS: Full weight bearing DIET AFTER DISCHARGE: dysphagia 1 with thin liq CHECKS AFTER DISCHARGE: CHECKS AFTER DISCHARGE: Check blood press - daily, Check blood sugar, ac/hs FOLLOW-UP: PHYSICIAN FOLLOW-UP: pcp prn TREATMENT/EQUIPMENT ORDERS: ADAPTIVE EQUIPMENT NEEDED: Brace/splint Physical Therapy For: Evalulation/Treatment Occupational Therapy For: Evaluation/Treatment Speech Language Pathology For: Evaluation/Treatment DISCHARGE MEDICATIONS: Home Meds Active Scripts Latanoprost (XALATAN) 1 Drop Drops, 1 DROP OU HS, #1 BOT Prov:MORRO BIRMINGHAM MD 08/25/13 Reported Medications Phenobarbital (PHENOBARBITAL) 97.2 Mg Tablet, 97.2 MG PO DAILY, TAB 01/23/19 Divalproex Sodium (DIVALPROEX SODIUM) 500 Mg Tablet.dr, 250 MG PO BID, TAB 01/23/19 Acetaminophen (TYLENOL) 325 Mg Tablet, 650 MG PO PRN Q4HRS PRN for PAIN, TAB 01/23/19 Dorzolamide Hcl (DORZOLAMIDE HCL) 10 Ml Drops, 1 DROP EACHEYE BID for GLAUCOMA , #30 ML 0 Refills 01/22/19 Melatonin (MELATONIN) 3 Mg Tablet, 1 TAB PO QHS for SLEEPLESSNESS , #30 TAB 2 Refills 01/22/19 Divalproex Sodium (DEPAKOTE ER) 500 Mg Tab.er.24h, 1 TAB PO DAILYBFRLUN for DEMENTIA , #60 TAB 2 Refills 01/22/19 Potassium Chloride (KLOR-CON 10) 10 Meq Tablet.er, 10 MEQ PO DAILY, TAB 01/24/15 Furosemide (LASIX) 20 Mg Tablet, 20 MG PO DAILY, TAB 01/24/15 Aspirin (ASPIR 81) 81 Mg Tablet.dr, 81 MG PO DAILY, TAB 01/24/15 Discontinued Reported Medications Estradiol (ESTRADIOL) 1 Mg Tablet, 1 TAB PO DAILY for HYPERSEXUAL BEHAVIORS, #30 TAB 11 Refills 01/22/19 Divalproex Sodium (DEPAKOTE ER) 250 Mg Tab.er.24h, 250 MG PO BID for ANXIETY, TAB.SR 01/22/19 Diphenoxylate Hcl/Atropine (LOMOTIL TABLET) 1 Each Tablet, 2 EACH PO TWICE WEEKLY, TAB 09/05/17 Diphenoxylate Hcl/Atropine (LOMOTIL TABLET) 1 Each Tablet, 1 EACH PO QID PRN for DIARRHEA, TAB 09/05/17 Cholecalciferol (Vitamin D3) (VITAMIN D) 2,000 Unit Capsule, 1 CAP PO DAILY, #30 CAP 3 Refills 06/22/16 Vit A,C & E/Lutein/Minerals (I-SATNAM TABLET) 1 Each Tablet, 1 TAB PO DAILY 06/22/16 Simvastatin (SIMVASTATIN) 10 Mg Tablet, 10 MG PO HS for FOR CHOLESTEROL, #30 TAB 0 Refills 01/24/15 Phenytoin Sodium Extended (DILANTIN) 100 Mg Capsule, 100 MG PO DAILY, CAP 01/24/15 Brinzolamide (AZOPT) 10 Ml Drops.susp, 10 ML OP HS 08/23/13 Discontinued Scripts Fluconazole (DIFLUCAN) 100 Mg Tablet, 100 MG PO DAILY, #6 TAB take daily for 2 more day, then once a week for 4 weeks Prov:GAGANDEEP PALENCIA MD 06/25/16 Cephalexin (CEPHALEXIN) 250 Mg Capsule, 500 MG PO QID, #60 TAB Prov:GAGANDEEP PALENCIA MD 06/25/16 Acetaminophen (MAPAP) 325 Mg Tablet, 650 MG PO PRN Q6HRS PRN for MILD PAIN / TEMP, #60 TAB Prov:GAGANDEEP PALENCIA MD 06/25/16 [Phenobarbital] 32.4 MG TABLET No Conflict Check, 97.2 MG PO DAILY Prov:MORRO BIRMINGHAM MD 08/25/13 MERVIN PADRON MD Jan 24, 2019 08:11
[2019-01-24 08:29] VITALS: BP 150/72
[2019-01-24] MEDS: FUROSEMIDE 20 MG TABLET PO SCH (08:47)
[2019-01-24] MEDS: ESTRADIOL 1 MG TABLET. PO SCH (08:47)
[2019-01-24] MEDS: DIVALPROEX DELAYED RELEASE 250 MG TABLET.DR. PO SCH (08:48)
[2019-01-24] MEDS: DORZOLAMIDE 2% OPHTH SOLUTION 10ML BOTTLE. OU SCH (08:48)
[2019-01-24] MEDS: PHENobarbital 32.4 MG TABLET. PO SCH (08:48)
[2019-01-24] MEDS: ASPIRIN ENTERIC COATED 81 MG TABLET.DR. PO SCH (08:48)
[2019-01-24] MEDS: LACTOBACILLUS RHAMNOSUS GG 1 CAPSULE. PO SCH (08:48)
[2019-01-24] MEDS: POTASSIUM CHLORIDE 10 MEQ TABLET.ER. PO SCH (08:48)
--- NOTE | 2019-01-24 09:41 | PDOC3 ---
Discharge Summary Visit Information Date of Admission: Jan 23, 2019 Date of Discharge: Jan 24, 2019 Admitting Diagnosis Comment: NO UTI in a SNU resident - Normal vivienne on Urine cx DNR [place] Resident Enceph, metabolic, probably now back at baseline Dysphagia diet Total care Final Diagnosis Problems Medical Problems: (1) Altered mental status Status: Acute (2) UTI (urinary tract infection) Status: Acute Brief Hospital Course Allergies Allergies Coded Allergies Type Severity Reaction Last Updated Verified vancomycin Allergy Intermediate REDNESS AT SITE OF INFUSION 06/22/16 Yes I S O L A T I O N *CONTACT* Allergy Unknown 09/09/17 Yes Vital Signs Vital Signs Date Time Temp Pulse Resp B/P (MAP) Pulse Ox O2 Delivery O2 Flow Rate FiO2 01/24/19 08:30 Room Air 01/24/19 08:29 98.4 77 18 150/72 (98) 96 98.4 Lab Results Laboratory Tests Test 01/22/19 10:50 01/22/19 12:04 01/22/19 12:39 01/23/19 04:10 White Blood Count 10.4 x10^3/uL (4.0-11.0) 7.1 x10^3/uL (4.0-11.0) Red Blood Count 4.02 x10^6/uL (4.30-5.70) 3.50 x10^6/uL (4.30-5.70) Hemoglobin 13.7 g/dL (13.0-17.5) 12.0 g/dL (13.0-17.5) Hematocrit 40.0 % (39.0-53.0) 35.0 % (39.0-53.0) Mean Corpuscular Volume 100 fL (79-100) 100 fL (79-100) Mean Corpuscular Hemoglobin 34 pg (25-35) 34 pg (25-35) Mean Corpuscular Hemoglobin Concent 34 g/dL (31-37) 34 g/dL (31-37) Red Cell Distribution Width 14.2 % (11.5-14.5) 14.1 % (11.5-14.5) Platelet Count 241 x10^3/uL (140-400) 210 x10^3/uL (140-400) Neutrophils (%) (Auto) 82 % (31-73) 66 % (31-73) Lymphocytes (%) (Auto) 8 % (24-48) 19 % (24-48) Monocytes (%) (Auto) 9 % (0-9) 11 % (0-9) Eosinophils (%) (Auto) 1 % (0-3) 3 % (0-3) Basophils (%) (Auto) 0 % (0-3) 1 % (0-3) Neutrophils # (Auto) 8.5 x10^3/uL (1.8-7.7) 4.7 x10^3/uL (1.8-7.7) Lymphocytes # (Auto) 0.9 x10^3/uL (1.0-4.8) 1.4 x10^3/uL (1.0-4.8) Monocytes # (Auto) 0.9 x10^3/uL (0.0-1.1) 0.8 x10^3/uL (0.0-1.1) Eosinophils # (Auto) 0.1 x10^3/uL (0.0-0.7) 0.2 x10^3/uL (0.0-0.7) Basophils # (Auto) 0.0 x10^3/uL (0.0-0.2) 0.0 x10^3/uL (0.0-0.2) Sodium Level 141 mmol/L (136-145) 142 mmol/L (136-145) Potassium Level 3.8 mmol/L (3.5-5.1) 3.8 mmol/L (3.5-5.1) Chloride Level 105 mmol/L (98-107) 109 mmol/L (98-107) Carbon Dioxide Level 28 mmol/L (21-32) 25 mmol/L (21-32) Anion Gap 8 (6-14) 8 (6-14) Blood Urea Nitrogen 33 mg/dL (8-26) 28 mg/dL (8-26) Creatinine 0.8 mg/dL (0.7-1.3) 0.6 mg/dL (0.7-1.3) Estimated GFR (Cockcroft-Gault) 93.5 130.3 BUN/Creatinine Ratio 41 (6-20) 47 (6-20) Glucose Level 87 mg/dL (70-99) 82 mg/dL (70-99) Lactic Acid Level 1.2 mmol/L (0.4-2.0) Calcium Level 8.9 mg/dL (8.5-10.1) 8.6 mg/dL (8.5-10.1) Magnesium Level 2.0 mg/dL (1.8-2.4) Total Bilirubin 0.4 mg/dL (0.2-1.0) 0.3 mg/dL (0.2-1.0) Aspartate Amino Transf (AST/SGOT) 19 U/L (15-37) 18 U/L (15-37) Alanine Aminotransferase (ALT/SGPT) 15 U/L (16-63) 12 U/L (16-63) Alkaline Phosphatase 74 U/L (46-116) 63 U/L (46-116) Ammonia < 10 mcmol/L (11-34) Total Protein 7.1 g/dL (6.4-8.2) 5.9 g/dL (6.4-8.2) Albumin 3.2 g/dL (3.4-5.0) 2.7 g/dL (3.4-5.0) Albumin/Globulin Ratio 0.8 (1.0-1.7) 0.8 (1.0-1.7) O2 Saturation 96 % (92-99) Arterial Blood pH 7.46 (7.35-7.45) Arterial Blood pCO2 at Patient Temp 31 mmHg (35-46) Arterial Blood pO2 at Patient Temp 80 mmHg (65-108) Arterial Blood HCO3 22 mmol/L (21-28) Arterial Blood Base Excess -1 mmol/L (-3-3) FiO2 21 Urine Collection Type Unknown Urine Color Yellow Urine Clarity Clear Urine pH 6.5 Urine Specific [place] 1.020 Urine Protein Negative mg/dL (NEG-TRACE) Urine Glucose (UA) Negative mg/dL (NEG) Urine Ketones (Stick) Negative mg/dL (NEG) Urine Blood Negative (NEG) Urine Nitrite Negative (NEG) Urine Bilirubin Negative (NEG) Urine Urobilinogen Dipstick 2.0 mg/dL (0.2 mg/dL) Urine Leukocyte Esterase Moderate (NEG) Urine RBC 0 /HPF (0-2) Urine WBC >40 /HPF (0-4) Urine Squamous Epithelial Cells Few /LPF Urine Transitional Epithelial Cells Few /LPF Urine Bacteria Many /HPF (0-FEW) Urine Hyaline Casts Moderate /HPF Urine Mucus Mod /LPF Brief Hospital Course Mr. Serrano is a 78 old SNu resident [place] who is total care, DNR< Dysphagia diet thin liq and needs aide to feed NO sacral wounds though, Admitted bec of confusion, intially thought to have uTI so got abx but urine cx neg so will go back to SNU no change in meds and no abx needed,"Back to baseline, Seen by [facility] and pT.OT Neuro consulted - no other recs, CPM Proc; None time < 30 mins Pt seen and examined dw RN Becca Discharge Information Condition at Discharge: Improved, Stable Disposition/Orders: Other (snu) Scheduled Aspirin (Aspir 81) 81 Mg Tablet.dr, 81 MG PO DAILY, (Reported) Entered as Reported by: GEORGIE BARRIOS on 01/24/15 1015 Last Action: Continued on 01/22/191713 by DARSHAN BERGMAN Divalproex Sodium (Depakote Er) 500 Mg Tab.er.24h, 1 TAB PO DAILYBFRLUN for DEMENTIA , #60 Ref 2 (Reported) Entered as Reported by: DARSHAN BERGMAN on 01/22/191654 Last Taken: Unknown Dose on 01/22/19 Last Action: Continued on 01/22/191713 by DARSHAN BERGMAN Divalproex Sodium (Divalproex Sodium) 500 Mg Tablet.dr, 250 MG PO BID, (Reported) Entered as Reported by: LUIZA CORADO RPH on 01/23/19850 Last Action: New Order on 01/23/19850 by LUIZA CORADO RPH Dorzolamide Hcl (Dorzolamide Hcl) 10 Ml Drops, 1 DROP EACHEYE BID for GLAUCOMA , #30 Ref 0 (Reported) Entered as Reported by: DARSHAN BERGMAN on 01/22/191654 Last Taken: Unknown Dose on 01/22/19 Last Action: Continued on 01/22/191713 by DARSHAN BERGMAN Furosemide (Lasix) 20 Mg Tablet, 20 MG PO DAILY, (Reported) Entered as Reported by: GEORGIE BARRIOS on 01/24/15 1015 Last Action: Continued on 01/22/191713 by DARSHAN BERGMAN Latanoprost (Xalatan) 1 Drop Drops, 1 DROP OU HS, #1 Prescribed by: MORRO BIRMINGHAM on 08/25/13 1229 Last Action: Continued on 01/22/191713 by DARSHAN BERGMAN Melatonin (Melatonin) 3 Mg Tablet, 1 TAB PO QHS for SLEEPLESSNESS , #30 Ref 2 (Reported) Entered as Reported by: DARSHAN BERGMAN on 01/22/19 165 Last Taken: Unknown Dose on 01/21/19 Last Action: Converted on 01/22/191713 by DARSHAN BERGMAN Phenobarbital (Phenobarbital) 97.2 Mg Tablet, 97.2 MG PO DAILY, (Reported) Entered as Reported by: LUIZA CORADO RPH on 01/23/19850 Last Action: New Order on 01/23/19850 by LUIZA CORADO RPH Potassium Chloride (Klor-Con 10) 10 Meq Tablet.er, 10 MEQ PO DAILY, (Reported) Entered as Reported by: GEORGIE BARRIOS on 01/24/15 1015 Last Action: Continued on 01/22/191713 by DARSHAN BERGMAN Scheduled PRN Acetaminophen (Tylenol) 325 Mg Tablet, 650 MG PO PRN Q4HRS PRN for PAIN, (Reported) Entered as Reported by: LUIZA CORADO RPH on 01/23/19850 Last Action: New Order on 01/23/19850 by LUIZA CORADO RPH Discontinued Medications Acetaminophen (Mapap) 325 Mg Tablet, 650 MG PO PRN Q6HRS PRN for MILD PAIN / TEMP, #60 Discontinued Reason: CHANGE SIG Prescribed by: GAGANDEEP PALENCIA MD on 06/25/16 1044 Last Action: Discontinued on 01/23/19850 by LUIZA CORADO RPH Brinzolamide (Azopt) 10 Ml Drops.susp, 10 ML OP HS, (Reported) Discontinued Reason: D/C Entered as Reported by: JAYDA CARR on 08/23/13 1744 Last Action: Discontinued on 01/23/19850 by LUIZA CORADO RPH Cephalexin (Cephalexin) 250 Mg Capsule, 500 MG PO QID, #60 Discontinued Reason: D/C Prescribed by: GAGANDEEP PALENCIA MD on 06/25/16 1044 Last Action: Discontinued on 01/23/19850 by LUIZA CORADO RPH Cholecalciferol (Vitamin D3) (Vitamin D) 2,000 Unit Capsule, 1 CAP PO DAILY, #30 Ref 3 (Reported) Discontinued Reason: D/C Entered as Reported by: DAVON JASMINE on 06/22/166 Last Action: Discontinued on 01/23/19852 by LUIZA CORADO RP Diphenoxylate Hcl/Atropine (Lomotil Tablet) 1 Each Tablet, 1 EACH PO QID PRN for DIARRHEA, (Reported) Discontinued Reason: D/C Entered as Reported by: JAYDA HUNTLEY on 09/05/171913 Last Action: Discontinued on 01/23/19850 by LUIZA CORADO RPH Diphenoxylate Hcl/Atropine (Lomotil Tablet) 1 Each Tablet, 2 EACH PO TWICE JOSEIrwin BYRONGaetano, (Reported) Discontinued Reason: D/C Entered as Reported by: JAYDA HUNTLEY on 09/05/171913 Last Action: Discontinued on 01/23/19850 by LUIZA CORADO RP Divalproex Sodium (Depakote Er) 250 Mg Tab.er.24h, 250 MG PO BID for ANXIETY, (Reported) Discontinued Reason: CHAGNE Entered as Reported by: DARSHAN BERGMAN on 01/22/191654 Last Taken: Unknown Dose on 01/22/19 Last Action: Discontinued on 01/23/19850 by LUIZA CORADO RP Estradiol (Estradiol) 1 Mg Tablet, 1 TAB PO DAILY for HYPERSEXUAL BEHAVIORS, #30 Ref 11 (Reported) Discontinued Reason: CHANGE Entered as Reported by: DARSHAN BERGMAN on 01/22/191654 Last Taken: Unknown Dose on 01/22/19 Last Action: Discontinued on 01/23/19850 by LUIZA CORADO RP Fluconazole (Diflucan) 100 Mg Tablet, 100 MG PO DAILY, #6 take daily for 2 more day, then once a week for 4 weeks Discontinued Reason: D/C Prescribed by: GAGANDEEP PALENCIA MD on 06/25/16 1044 Last Action: Discontinued on 01/23/19850 by LUIZA CORADO RP Phenytoin Sodium Extended (Dilantin) 100 Mg Capsule, 100 MG PO DAILY, (Reported) Discontinued Reason: D/C Entered as Reported by: GEORGIE BARRIOS on 01/24/15 1015 Last Action: Discontinued on 01/23/19850 by LUIZA CORADO RP Simvastatin (Simvastatin) 10 Mg Tablet, 10 MG PO HS for FOR CHOLESTEROL, #30 Ref 0 (Reported) Discontinued Reason: D/C Entered as Reported by: GEORGIE BARRIOS on 01/24/15 1015 Last Action: Discontinued on 01/23/19 0853 by LUIZA CORADO RP Vit A,C & E/Lutein/Minerals (I-Simran Tablet) 1 Each Tablet, 1 TAB PO DAILY, (Reported) Discontinued Reason: D/C Entered as Reported by: DAVON JASMINE on 06/22/16 1845 Last Action: Discontinued on 01/23/19 0853 by LUIZA CORADO [facility] [Phenobarbital] 32.4 MG TABLET, 97.2 MG PO DAILY Discontinued Reason: CHANGE Prescribed by: MORRO BIMRINGHAM on 08/25/13 1229 Last Action: Discontinued on 01/23/19 0851 by LUIZA CORADO [facility] MERVIN PADRON MD Jan 24, 2019 09:41
[2019-01-24] MEDS: IV NORMAL SALINE 1000ML BAG 1,000 ML IV SCH (10:26)
[2019-01-24 10:31] VITALS: BP 113/73
[2019-01-24] MEDS: DIVALPROEX EXTENDED RELEASE 500 MG TAB.ER.24H. PO SCH (11:26)
[2019-01-24] MEDS: ENOXAPARIN 40 MG/0.4 ML SYRINGE. SQ SCH (11:26)
[2019-01-24 11:45] VITALS: BP 134/55
--- NOTE | 2019-01-24 14:42 | NUR ---
Discharge Note: TOBI ALVES J5 [facility] Discharge instructions and discharge home medications reviewed with Other facility ([facility]) and a copy given. All questions have been answered and understanding verbalized. The following instructions and handouts were given: discharge instructions and copy of chart. Discontinued lines and drains: Peripheral IV discontinued intact. Patient discharged to Custodial Care with Transport Personnel via Wheelchair
== END 2019-01-24 14:43 | disposition home or self-care (01) | DRG 72 ==
LOC: ER 10:29 → 5 SOUTH 12:51 → OBSVTOIN 01-23 09:57
PROVIDERS: ADMIT Internal Medicine; ATTEND Internal Medicine
DX: G93.41 Metabolic encephalopathy (principal); E78.5 Hyperlipidemia, unspecified; F03.90 Unspecified dementia, unspecified severity, without behavioral disturbance, psychotic disturbance, mood disturbance, and anxiety; F41.9 Anxiety disorder, unspecified; G40.409 Other generalized epilepsy and epileptic syndromes, not intractable, without status epilepticus; H40.9 Unspecified glaucoma; I11.0 Hypertensive heart disease with heart failure; I50.9 Heart failure, unspecified; Z96.649 Presence of unspecified artificial hip joint; M19.90 Unspecified osteoarthritis, unspecified site; G80.9 Cerebral palsy, unspecified; G93.89 Other specified disorders of brain; R13.10 Dysphagia, unspecified; Z66 Do not resuscitate; Z79.82 Long term (current) use of aspirin; Z79.899 Other long term (current) drug therapy; Z82.49 Family history of ischemic heart disease and other diseases of the circulatory system; Z88.1 Allergy status to other antibiotic agents; Z88.8 Allergy status to other drugs, medicaments and biological substances
CPT/HCPCS: 36415; 36600; 70450; 71045; 80053; 81001; 82140; 82805; 83605; 83735; 85025; 87040; 87086; 93005; 96374; G0378; G0379; J0696; J1650; J7030; P9612; 92610; 99285-25

== ENCOUNTER 2019-02-02 19:41 | Emergency (ER) | payer MEDICARE, OTHER ==
[~2019-02-02] VITALS: Ht 177.8 cm; Wt 81.6 kg
[~2019-02-02 19:41] MED LIST changes: +ACET325T9 PO; +DIVA-53 PO; +DIVA250T PO; +DIVA500T4 PO; +DORZ10DR6 EACHEYE; +ESTR1TAB15 PO; +MELA3TAB56 PO; +PHEN97.2 PO; -SIMV10TA15 PO; +SIMV10TA3 PO
--- NOTE | 2019-02-02 21:11 | RAD ---
Exam: CT head and cervical spine INDICATION: Fall TECHNIQUE: Sequential axial images through the head and cervical spine were obtained without the administration of IV contrast. Comparisons: 01/22/2019 FINDINGS: Head: No focal parenchymal lesion or hemorrhage is identified. There is no midline shift or sulcal effacement. No acute vascular territory infarction is identified. Bowman-white distinction is preserved. Stable dilatation of the ventricular system. There is redemonstration of encephalomalacia in the left frontal parietal lobe. The basal cisterns are well maintained. Extra cranial soft tissue contusion overlying the left frontal region. The visualized portions of the paranasal sinuses and mastoid air cells are well-pneumatized. No acute fractures. Cervical spine: Vertebral body heights and alignment are well-maintained. Fracture to the cervical spine is not identified. There is multilevel spondylotic change in the cervical spine with degenerative disc disease greatest at C4-C5, C5-C6 and C6-C7. Visualized paraspinal soft tissues are unremarkable. IMPRESSION: 1. Extracranial soft tissue contusion overlying the left frontal region without underlying acute intracranial abnormality. 2. Negative CT C-spine for acute traumatic injury. Exposure: One or more of the following in the visualized dose reduction techniques were utilized for this examination: 1. Automated exposure control 2. Adjustment of the MA and/or KV according to patient size Use of iterative of reconstructive technique Electronically signed by: Reji Chen MD (02/02/2019 9:09 PM) [facility]
--- NOTE | 2019-02-02 21:52 | PHYS DOC ---
Past Medical History Past Medical History: CHF, Dementia, High Cholesterol Additional Past Medical Histor: cerebral palsy, epilepsy, weakness, dysphagia, metabolic encephalopathy. Past Surgical History: Other Additional Past Surgical Histo: R arm; R leg; hernia; R hip; Alcohol Use: None Drug Use: None Adult General Chief Complaint Chief Complaint: MECHANICAL FALL HPI HPI Patient is a 78 year old male presenting with a fall. Family states that patient was being cleaned and had the bedrail down. At this point patient by mistake turned over and fell onto the floor. Family states that staff noted that patient has had. There is a bruise to the left forehead. Stab denied patient lost consciousness. Review of Systems Review of Systems Constitutional: Denies fever or chills [] Eyes: Denies change in visual acuity, redness, or eye pain [] HENT: Complains of pain to the left forehead. Respiratory: Denies cough or shortness of breath [] Cardiovascular: Denies chest pain GI: Denies abdominal pain, nausea, vomiting, bloody stools or diarrhea [] : Denies dysuria or hematuria [] Musculoskeletal: Denies back pain or joint pain [] All other systems were reviewed and found to be within normal limits, except as documented in this note. Allergies Allergies Allergies Coded Allergies Type Severity Reaction Last Updated Verified vancomycin Allergy Intermediate REDNESS AT SITE OF INFUSION 06/22/16 Yes I S O L A T I O N *CONTACT* Allergy Unknown 09/09/17 Yes Physical Exam Physical Exam Constitutional: Well developed, well nourished, no acute distress, non-toxic appearance. [] HENT: Small bruise to the left forehead. Eyes: EOMI Neck: Normal range of motion, no tenderness, supple Cardiovascular:Heart rate regular rhythm Lungs & Thorax: Bilateral breath sounds clear to auscultation [] Abdomen: Bowel sounds normal, soft, no tenderness Back: No tenderness, no CVA tenderness. [] Extremities: No tenderness, no cyanosis, no clubbing, ROM intact, no edema. [] Neurologic: Alert Current Patient Data Vital Signs Vital Signs Date Time Temp Pulse Resp B/P (MAP) Pulse Ox O2 Delivery O2 Flow Rate FiO2 02/02/19 19:42 97.5 81 18 136/87 (103) 98 Room Air 97.5 EKG EKG [] Radiology/Procedures Radiology/Procedures Ordered CT of the head without contrast and CT of the C-spine without contrast[] Impressions: CT imaging shows no acute fractures or acute process. Course & Med Decision Making Course & Med Decision Making Pertinent Imaging studies reviewed. (See chart for details) Ordered CT head and C-spine. Patient is not on blood thinners. He takes oral aspirin everyday. CT imaging is negative for acute fractures or acute process. Family in the room. Discussed results and plan of care with patient. Patient is instructed to follow up with PCP in one to 2 days. Appropriate discharge instructions given to patient to return to the ED or to seek immediate medical evaluation. Dragon Disclaimer Dragon Disclaimer This electronic medical record was generated, in whole or in part, using a voice recognition dictation system. Departure Departure Impression: Primary Impression: Head injury Additional Impression: Fall Disposition: 01 HOME, SELF-CARE Condition: STABLE Referrals: FIGUEROA NAVA MD (PCP) Additional Instructions: Appropriate discharge instructions given to patient to return to the ED or to seek immediate medical evaluation. Patient follow-up with PCP in one to 2 days. Patient instructed to return to ED if symptoms worsen or if any concerns Problem Qualifiers YONI ORTIZ DO Feb 02, 2019 21:52
[2019-02-02 22:21] VITALS: BP 117/70
== END 2019-02-02 22:34 | disposition home or self-care (01) ==
LOC: ER 19:41
DX: S00.83XA Contusion of other part of head, initial encounter (principal); R51 Headache; M50.320 Other cervical disc degeneration, mid-cervical region, unspecified level; E78.00 Pure hypercholesterolemia, unspecified; G40.909 Epilepsy, unspecified, not intractable, without status epilepticus; Z86.79 Personal history of other diseases of the circulatory system; Z88.1 Allergy status to other antibiotic agents; Z91.041 Radiographic dye allergy status; W06.XXXA Fall from bed, initial encounter; Y93.89 Activity, other specified; Y92.89 Other specified places as the place of occurrence of the external cause; Y99.8 Other external cause status
CPT/HCPCS: 70450; 72125; 99284-25